=== PATIENT | female | born 1950 | race Caucasian/White ===

== ENCOUNTER → 2021-07-04 09:28 | Outpatient (BNVA) | payer MEDICARE, SELFPAY | PROVIDERS: PCP Internal Medicine; Visit Provider Urology | DX: N39.0 Urinary tract infection, site not specified (principal); N32.81 Overactive bladder | CPT/HCPCS: 51798; 99212 ==

== ENCOUNTER 2022-09-26 14:30 | Outpatient (AMB) | payer MEDICARE, SELFPAY ==
--- NOTE | 2022-09-26 14:34 | A.OFFVIS_ITS ---
Intake Intake Visit Reasons: 1 year follow up PVR and OAB Intake Note: 1 yr fu pvr and oab Allergies penicillin G Allergy (Unknown, Verified 09/26/22 14:35) Unknown Sulfacet-R Allergy (Unknown, Uncoded 09/26/22 14:35) Unknown HPI HPI Comments History of Present Illness Details Suzie VIEYRA is a very pleasant female. They are a patient of Dr. Alford. They are seen in the office today for the following urologic conditions. - recurring UTI - OAB Happy with current urinary performance Wants to increase oxybutynin to 10 mg Prescription provided Only 1 infection last year Urinary Tract Infection:? Stable on UA today Minimal issues with estradiol ? They present for?followup evaluation for, recurrent UTI's.? The first infection began?During 2019 approximately 6 infections - background of diabetes ? Severity of the symptom(s)?that is moderate.? Therapy has included?symptomatic use of antibiotics.? Relevant medical history? diabetes ?Yes ? constipation ?No ? incomplete bladder emptying ?No ? renal stones ?No ? genitourinary surgery ?No ? association of infections with intercourse ?No ? history of vesicoureteral reflux ?No ? Self-administered antibiotics Urinary urgency and frequency Good response to oxybutynin Will remain May need to changeover operator to beta agonist at future [facility] Medical History Diabetes mellitus HTN (hypertension) Hyperlipidemia OAB (overactive bladder) Recurrent UTI Vaginal atrophy Surgical History History of surgery Review of Systems Const Denies chills and Denies fever(s) Card Reports no additional complaints and Denies syncope Resp Denies cough GI Denies abdominal pain and Denies heartburn Reports as per HPI and Denies change in libido Neuro Denies syncope Psych Denies change in libido Endo Denies change in libido Physical Exam Const General: cooperative, healthy appearing, comfortable and no acute distress Orientation/consciousness: patient oriented x3 HEENT Face and sinus: Yes normal facial exam Mouth: moist mucous membranes Neck Neck: Yes normal visual inspection, Yes full ROM and Yes trachea midline Chest Chest palpation & inspection: normal inspection of the chest Resp Effort & Inspection: normal respiratory effort, able to speak in complete sentences and no respiratory distress GI Inspection: Yes normal to inspection Back/Spine/Pelvis Cervical Spine: normal cervical lordosis Thoracic/Lumbar Spine: thoracic and lumbar spine normal to inspection Skin General skin exam: no rashes or lesions noted Neuro General: patient oriented x3, gait normal, tone normal and moves all extremities Extrem General: Yes normal to inspection and Yes capillary refill normal Results AMB Urinalysis, Automated UA Leukoctes 15 David/uL Last Edit by RUSTY Magallanes on 09/26/22 15:26 UA Nitrite Negative Last Edit by Marcella Sanz Page on 09/26/22 15:26 UA Urobilinogen 0 mg/dL Last Edit by RUSTY Magallanes on 09/26/22 15:26 UA Protein 0 mg/dL Last Edit by Marcella Sanz Page on 09/26/22 15:26 UA pH 5.5 Last Edit by RUSTY Magallanes on 09/26/22 15:26 UA Blood 0 Jayden/uL Last Edit by Marcella Sanz Page on 09/26/22 15:26 UA Specific [place] 1.030 Last Edit by RUSTY Magallanes on 09/26/22 15: 26 UA Ketone Positive Last Edit by Marcella Sanz Page on 09/26/22 15:26 UA Bilirubin 0 mg/dL Last Edit by Marcella Sanz Page on 09/26/22 15:26 UA Glucose 0 mg/dL Last Edit by Marcella Sanz Page on 09/26/22 15:26 Results Reviewed Results Reviewed: Laboratory Last Values Urine pH (Auto) 5.5 09/26/22 15:25 Specific [place] (Auto) 1.030 09/26/22 15:25 Urine Protein (Auto) 0 mg/dL 09/26/22 15:25 Glucose (UA)(Auto) 0 mg/dL 09/26/22 15:25 Urine Ketones (Auto) Positive 09/26/22 15:25 Urine Blood (Auto) 0 Jayden/uL 09/26/22 15:25 Urine Nitrite (Auto) Negative 09/26/22 15:25 Urine Bilirubin (Auto) 0 mg/dL 09/26/22 15:25 Urine Urobilinogen (Auto) 0 mg/dL 09/26/22 15:25 Leukocyte Esterase (Auto) 15 David/uL 09/26/22 15:25 Assessment & Plan Assessment & Plan (1) Overactive bladder: Code(s): N32.81 - Overactive bladder (2) Recurrent UTI (urinary tract infection): Code(s): N39.0 - Urinary tract infection, site not specified Plan 12 month follow-up Orders: Orders AMB Urinalysis Automated 09/26/22 Z13.9 - Encounter for screening, unspecified Medications: New oxybutynin chloride ER 10 mg PO DAILY 90 tabs 3RF 90 days N32.81 - Overactive bladder Patient Instructions: Imaging studies, laboratory and physical exam results were discussed and reviewed in detail. No major barriers to patient understanding were identified. An opportunity to ask questions regarding the treatment plan was provided. All questions were answered. The patient expressed understanding and agreement with the above treatment plan. The patient is aware they should contact our office by phone for worsening of their current condition or the appearance of new urologic symptoms. Compliance is encouraged with any medications and followup testing that is ordered. It is a privilege to participate in the urologic care of your patient. If you have any questions or concerns regarding treatment for the above conditions, or other urologic issues, please do not hesitate to contact me. The office telephone contact is [phone]. This note is constructed using voice recognition software. While every effort has been made to ensure accuracy senior materials analyst errors may have been included. Yours sincerely, Dr Nahid Lamb MD, [facility] - Urology Providers of Expert, Compassionate Care for the Genitourinary System Coding Level of Care Code Est Pt Level 4 (59074) Diagnoses Overactive bladder N32.81 Recurrent UTI (urinary tract infection) N39.0
== END 2022-09-26 15:30 | disposition home or self-care (01) ==
LOC: HO.HUSH 14:30
PROVIDERS: PCP Internal Medicine; Visit Provider Urology
DX: N32.81 Overactive bladder (principal); N39.0 Urinary tract infection, site not specified
CPT/HCPCS: 99214; 99499

== ENCOUNTER → 2022-09-26 14:30 | Outpatient (BNVA) | payer MEDICARE, SELFPAY | PROVIDERS: PCP Internal Medicine; Visit Provider Urology | DX: N32.81 Overactive bladder (principal); N39.0 Urinary tract infection, site not specified | CPT/HCPCS: 99212 ==

== ENCOUNTER 2024-02-10 13:50 | Outpatient (REF) | payer MEDICARE, SELFPAY ==
[2024-02-10 19:12] LABS: Urine Cytology See Pathology rpt
== END 2024-02-10 13:51 | disposition home or self-care (01) ==
LOC: HO.LAB 13:50
PROVIDERS: PCP Internal Medicine; Visit Provider Urology
DX: R31.29 Other microscopic hematuria (principal); R33.9 Retention of urine, unspecified; N20.0 Calculus of kidney; R39.12 Poor urinary stream
CPT/HCPCS: 51798; 81003; 88112; 99212

== ENCOUNTER 2024-02-10 13:50 | Outpatient (AMB) | payer MEDICARE, SELFPAY ==
--- NOTE | 2024-02-10 13:53 | A.OFFVIS_ITS ---
Intake Visit Reasons: 1Y OAB/Med Reveiw(Oxybutynin) Intake Note: Patient presents today for a follow-up on Oxybutynin Med Review Meds- Oxybutinin, Estradiol Allergies to Antibiotic- Penicillin, Sulfacet- R Blood Thinner- Aspirin Post Void Residual: 0ml Patient Symptoms: Patient stated her primary care provider prescribed Oxybutynin 15mg and she is doing much better than before whe she was in lower dose. Patient stated she is using Estrace twice a week. Manager Technical Support Required: No Accompanied by: Self / Same As Patient Allergies penicillin G Allergy (Unknown, Verified 02/10/24 14:02) Unknown Sulfacet-R Allergy (Unknown, Uncoded 02/10/24 14:02) Unknown HPI Comments Details: Suzie VIEYRA is a very pleasant female. They are a patient of Dr. Alford. They are seen in the office today for the following urologic conditions. - recurring UTI - OAB - microscopic hematuria Yearly follow-up Microscopic hematuria Prior history recurrent UTI Renal bladder ultrasound required Cytology Doing well from UTI point of view. Using estradiol 2 times per week Urinary Tract Infection:? Stable on UA today Minimal issues with estradiol ? They present for?followup evaluation for, recurrent UTI's.? The first infection began?During 2019 approximately 6 infections - background of diabetes ? Severity of the symptom(s)?that is moderate.? Therapy has included?symptomatic use of antibiotics.? Relevant medical history? diabetes ?Yes ? constipation ?No ? incomplete bladder emptying ?No ? renal stones ?No ? genitourinary surgery ?No ? association of infections with intercourse ?No ? history of vesicoureteral reflux ?No ? Self-administered antibiotics Urinary urgency and frequency Good response to oxybutynin Will remain May need to private branch exchange repairer to beta agonist at future day [facility] Medical History Hyperlipidemia HTN (hypertension) Diabetes mellitus OAB (overactive bladder) Vaginal atrophy Recurrent UTI Surgical History History of surgery Review of Systems Const Denies chills and Denies fever(s) Card Reports no additional complaints and Denies syncope Resp Denies cough GI Denies abdominal pain and Denies heartburn Reports as per HPI and Denies change in libido Neuro Denies syncope Psych Denies change in libido Endo Denies change in libido Physical Exam Const General: cooperative, healthy appearing, comfortable and no acute distress Orientation/consciousness: patient oriented x3 HEENT Face and sinus: Yes normal facial exam Mouth: moist mucous membranes Neck Neck: Yes normal visual inspection, Yes full ROM and Yes trachea midline Chest Chest palpation & inspection: normal inspection of the chest Resp Effort & Inspection: normal respiratory effort, able to speak in complete sentences and no respiratory distress GI Inspection: Yes normal to inspection Back/Spine/Pelvis Cervical Spine: normal cervical lordosis Thoracic/Lumbar Spine: thoracic and lumbar spine normal to inspection Skin General skin exam: no rashes or lesions noted Neuro General: patient oriented x3, gait normal, tone normal and moves all extremities Extrem General: Yes normal to inspection and Yes capillary refill normal Office Procedures Post Void Residual Post Residual Void Post Void Residual (PVR): 0 [id number] Void Residual by ultrasound Results AMB Urinalysis, Automated UA Leukoctes 15 David/uL Last Edit by Iva Cortez CMA on 02/10/24 14:20 UA Nitrite Negative Last Edit by Iva Cortez CMA on 02/10/24 14: 20 UA Urobilinogen 0.2 mg/dL Last Edit by Iva Cortez CMA on 4 14:20 UA Protein 15 mg/dL Last Edit by Iva Cortez CMA on 02/10/24 14:2 0 UA pH 6.0 Last Edit by Iva Cortez CMA on 02/10/24 14:20 UA Blood 80 Jayden/uL Last Edit by [facility] on 02/10/24 14:20 UA Specific [place] 1.025 Last Edit by [facility] on 14:20 UA Ketone Negative Last Edit by [facility] on 02/10/24 14:2 0 UA Bilirubin 0 mg/dL Last Edit by [facility] on 02/10/24 14: 20 UA Glucose 0 mg/dL Last Edit by [facility] on 02/10/24 14:20 Results Reviewed Results Reviewed: Laboratory Last Values Urine pH (Auto) 6.0 02/10/24 13:56 Specific [place] (Auto) 1.025 02/10/24 13:56 Urine Protein (Auto) 15 mg/dL 02/10/24 13:56 Glucose (UA)(Auto) 0 mg/dL 02/10/24 13:56 Urine Ketones (Auto) Negative 02/10/24 13:56 Urine Blood (Auto) 80 Jayden/uL 02/10/24 13:56 Urine Nitrite (Auto) Negative 02/10/24 13:56 Urine Bilirubin (Auto) 0 mg/dL 02/10/24 13:56 Urine Urobilinogen (Auto) 0.2 mg/dL 02/10/24 13:56 Leukocyte Esterase (Auto) 15 David/uL 02/10/24 13:56 Assessment & Plan Assessment & Plan (1) Microscopic hematuria: Code(s): R31.29 - Other microscopic hematuria Category: Medical Plan Renal bladder ultrasound Orders: Orders AMB Post Void Residual by ultrasound 02/10/24 R33.9 - Retention of urine, unspecified US bladder 02/10/24 R39.12 - Poor urinary stream, R31.29 - Other microscopic hematuria US renal BI 1 Month N20.0 - Calculus of kidney, R31.29 - Other microscopic hematuria AMB Urinalysis Automated 02/10/24 R33.9 - Retention of urine, unspecified Urine Cytology 02/10/24 R31.29 - Other microscopic hematuria Patient Instructions: Imaging studies, laboratory and physical exam results were discussed and reviewed in detail. No major barriers to patient understanding were identified. An opportunity to ask questions regarding the treatment plan was provided. All questions were answered. The patient expressed understanding and agreement with the above treatment plan. The patient is aware they should contact our office by phone for worsening of their current condition or the appearance of new urologic symptoms. Compliance is encouraged with any medications and followup testing that is ordered. It is a privilege to participate in the urologic care of your patient. If you have any questions or concerns regarding treatment for the above conditions, or other urologic issues, please do not hesitate to contact me. The office telephone contact is [phone]. This note is constructed using voice recognition software. While every effort has been made to ensure accuracy harness and bag inspector errors may have been included. Yours sincerely, Dr Nahid Lamb MD, [facility] - Urology Providers of Expert, Compassionate Care for the Genitourinary System
== END 2024-02-10 14:48 | disposition home or self-care (01) ==
PROVIDERS: PCP Internal Medicine; Visit Provider Urology
DX: R31.29 Other microscopic hematuria (principal)
CPT/HCPCS: 99213

== ENCOUNTER 2024-03-14 13:52 | Outpatient (REF) | payer OTHER, SELFPAY ==
--- NOTE | ~2024-03-14 | US_ITS ---
EXAMINATION: US RETROPERITONEAL COMPLETE (RENAL) CLINICAL INFORMATION: Calculus of kidney. COMPARISON: None available. TECHNIQUE: Real-time imaging of the kidneys and bladder. FINDINGS: RIGHT KIDNEY: 10.4 x 4.0 x 5.2 cm (SAG x AP x TRV). The kidney is normal in size, contour, and echogenicity. Renal cortical thickness is normal. No calculi or focal parenchymal lesions. No hydronephrosis. LEFT KIDNEY: 9.8 x 4.3 x 3.9 cm (SAG x AP x TRV). The kidney is normal in size, contour, and echogenicity. Renal cortical thickness is normal. No calculi or focal parenchymal lesions. No hydronephrosis. BLADDER: Well distended and normal. Bilateral ureteral jets are demonstrated. Prevoid bladder volume is 107.1 mL. Postvoid bladder volume is 3.3 mL. US/US retroperitoneal comp IMPRESSION: Normal renal and bladder ultrasound.
== END 2024-03-14 13:53 | disposition home or self-care (01) ==
LOC: HO.US 13:52
PROVIDERS: PCP Internal Medicine; Visit Provider Urology
DX: N20.0 Calculus of kidney (principal); R39.12 Poor urinary stream; R31.29 Other microscopic hematuria
CPT/HCPCS: 76770

== ENCOUNTER 2024-03-25 14:18 | Outpatient (AMB) | payer OTHER, SELFPAY ==
--- NOTE | 2024-03-25 14:19 | A.OFFVIS_ITS ---
Intake Visit Reasons: 6w/US(set) Intake Note: Patient is Present for Telephone Follow Up For Urology Med: Estradiol,Oxybutynin Antibiotic Allergy:Penicillin, Sulfa Blood Thinner:Aspirin Allergies penicillin G Allergy (Unknown, Verified 02/10/24 14:02) Unknown Sulfacet-R Allergy (Unknown, Uncoded 02/10/24 14:02) Unknown Medication List - Last Reconciled 03/25/24 by Nahid Lamb MD aspirin (Adult Low Dose Aspirin) 81 mg PO DAILY atorvastatin 80 mg PO BEDTIME carvedilol 6.25 mg PO DAILY cholecalciferol (vitamin D3) 10 mcg PO DAILY escitalopram oxalate 10 mg PO DAILY estradiol 0.01%(0.1mg/gram) (Estrace) 1 appful vaginal DAILY losartan 50 mg PO DAILY metformin 500 mg PO DAILY oxybutynin chloride ER 15 mg PO DAILY 90 days HPI Comments Details: Suzie VIEYRA is a very pleasant female. She is a patient of Dr. Alfrod. She is seen for the following urologic conditions. - recurring urinary tract infection - overactive bladder - microscopic hematuria Telemedicine Evaluation 15 min Consultation Doximity Jena Video Recent UA normal Renal bladder ultrasound performed which is normal Cytology normal Continues with low-dose estradiol 2 times a week Good response to 15 mg oxybutynin. Refill provided. Urinary Tract Infection:? Stable on UA today Minimal issues with estradiol ? They present for?followup evaluation for, recurrent UTI's.? The first infection began?During 2019 approximately 6 infections - background of diabetes ? Severity of the symptom(s)?that is moderate.? Therapy has included?symptomatic use of antibiotics.? Relevant medical history? diabetes ?Yes ? constipation ?No ? incomplete bladder emptying ?No ? renal stones ?No ? genitourinary surgery ?No ? association of infections with intercourse ?No ? history of vesicoureteral reflux ?No ? Self-administered antibiotics Urinary urgency and frequency Good response to oxybutynin Will remain May need to exchange mechanic to beta agonist at future day [facility] Medical History Hyperlipidemia HTN (hypertension) Diabetes mellitus OAB (overactive bladder) Vaginal atrophy Recurrent UTI Surgical History History of surgery Review of Systems Const All systems reviewed & are unremarkable except as noted in HPI and below Reports no additional complaints Resp Reports no additional complaints GI Reports no additional complaints Reports as per HPI Musc Reports no additional complaints Physical Exam Telemedicine evaluation Appropriate responses Regular breathing rate and rhythm HEENT Head: Yes normal to inspection Ears: hearing grossly normal bilaterally Eyes General: appearance normal, both eyes and all related structures Neck Neck: Yes normal visual inspection Chest Chest palpation & inspection: normal inspection of the chest Resp Effort & Inspection: normal respiratory effort and able to speak in complete sentences Telehealth Telehealth Telehealth Platform: [employer] Location of provider rendering services: practice address Location of patient: address on file Patient Identification confirmed using: Name, : Yes Telehealth method: video Patient verbally consented to treatment: Yes Patient verbally consented to billing insurance company: Yes Patient informed of any privacy concerns related to visit: Yes Assessment & Plan Assessment & Plan (1) Recurrent UTI (urinary tract infection): Code(s): N39.0 - Urinary tract infection, site not specified Category: Medical (2) Overactive bladder: Code(s): N32.81 - Overactive bladder Category: Medical Plan One year follow-up Medications: Discontinued oxybutynin chloride ER Discontinued Reason: Patient Refused 10 mg PO DAILY 90 days 90 tabs 3RF N32.81 - Overactive bladder Patient Instructions: Imaging studies, laboratory and physical exam results were discussed and reviewed in detail. No major barriers to patient understanding were identified. An opportunity to ask questions regarding the treatment plan was provided. All questions were answered. The patient expressed understanding and agreement with the above treatment plan. The patient is aware they should contact our office by phone for worsening of their current condition or the appearance of new urologic symptoms. Compliance is encouraged with any medications and followup testing that is ordered. It is a privilege to participate in the urologic care of your patient. If you have any questions or concerns regarding treatment for the above conditions, or other urologic issues, please do not hesitate to contact me. The office telephone contact is [phone]. This note is constructed using voice recognition software. While every effort has been made to ensure accuracy supervisor transferring and boxing errors may have been included. Yours sincerely, Dr Nahid Lamb MD, [facility] - Urology Providers of Expert, Compassionate Care for the Genitourinary System Coding Level of Care Code Tele Est Pt Level 3 (49830) Diagnoses Recurrent UTI (urinary tract infection) N39.0 Overactive bladder N32.81
== END 2024-03-25 15:02 | disposition home or self-care (01) ==
LOC: HO.HUSH 14:18
PROVIDERS: PCP Internal Medicine; Visit Provider Urology
DX: N39.0 Urinary tract infection, site not specified (principal); N32.81 Overactive bladder
CPT/HCPCS: 99213

== ENCOUNTER → 2024-03-25 14:18 | Outpatient (BNVA) | payer OTHER, SELFPAY | PROVIDERS: PCP Internal Medicine; Visit Provider Urology ==

== ENCOUNTER 2024-04-15 14:35 | Outpatient (REF) | payer SELFPAY ==
--- NOTE | 2024-04-19 10:41 | MHC.AU.HA1 ---
Hearing Aid Evaluation Date of Visit: 04/15/24 Historical Information: Description of Hearing: Right Ear: Within normal at .25 sloping to severe sensorineural hearing loss; Left Ear: Within normal through 2 kHz sloping to severe sensorineural hearing loss Summary: Alyssas hearing was evaluated at [facility] in January 2024. She was initially evaluated for pulsatile tinnitus in her right ear. She had an MRI and CT scan without any abnormal findings. However, after her hearing test, the mechanic field service recommended hearing aids. Although Suzie does not notice significant communication difficulties, she has found herself turning up the volume of the television or straining to hear speakers at a distance. Suzie currently lives alone. She is a teacher, working in small groups. She frequents restorationism as well as other social gatherings. Discussed possible third-alliance party hearing aid benefit through [employer] insurance. Advised that she would need to go to a contracted provider with her insurance for hearing aids to utilize any benefit. [facility] cannot bill her insurance for hearing aids and she would likely not get reimbursed. Suzie did not want to inquire any further with her insurance and opted to self-pay for hearing aids here. Discussed styles and technology levels. Suzie initially wanted custom hearing aid; however, ultimately opted for rechargeable RITE for open fitting. No interest in bluetooth. Hearing Aid Prescription: Based on the individual?s shared listening needs, communication environments, dexterity, desire for connectivity, and personal preferences, the following prescription for amplification has been made: Right ear: Make, Model, Color: Oticon Intent 2 miniRITE-R Color: Silver Battery Size: Rechargeable Preprint Analyst/Slim Tube: 2/85 Type of Earmold/Dome/CShell/SlimTip: 8mm open vides dome Left ear: Left ear prescription to be same as Right Hearing Aid above: Make, Model, Color: Oticon Intent 2 miniRITE-R Color: Silver Battery Size: Rechargeable Preprint Analyst/Slim Tube: 2/85 Type of Earmold/Dome/CShell/SlimTip: 8mm open vides dome Accessories/Assistive Technology: Supervisor Facepiece Line; ConnectClip Plan of Care: Patient wishes to purchase hearing aids as prescribed Action Taken/Action Needed: Hearing Instrument Fitting to be scheduled when materials arrive Comments: Signed medical waiver Primary Diagnosis: H90.3 Bilateral Sensorineural Hearing Loss Signature: Provider: Rima Holly, [facility]
== END 2024-04-15 14:36 | disposition home or self-care (01) ==
LOC: HO.HAP 14:35
PROVIDERS: PCP Internal Medicine; Visit Provider Internal Medicine
DX: Z46.1 Encounter for fitting and adjustment of hearing aid (principal); H90.3 Sensorineural hearing loss, bilateral
CPT/HCPCS: 92590

== ENCOUNTER 2024-05-02 13:42 | Outpatient (REF) | payer SELFPAY ==
--- NOTE | 2024-05-02 15:42 | MHC.AU.HA2 ---
Hearing Instrument Fitting- Adult- Binaural Date of Visit: 05/02/24 Hearing Instruments Dispensed: Right Ear: Make, Model, Color, Serial Number: Oticon Intent 2 miniRITE-R SN: [id number] Color: Silver Refrigeration System Installer Repair Warranty: 05/19/2027 Refrigeration System Installer Loss and Damage Warranty: 05/19/2027 [employer] Service Plan: OPTED OUT Battery Size: Rechargeable Camp Program Director/Slim Tube: 2/85 Earmold/Dome/CShell/SlimTip: 8mm open vides dome (no retention tail) Type of Wax Guard: miniFit Left Ear: Make, Model, Color, Serial Number: Oticon Intent 2 miniRITE-R SN: [id number] Color: Silver Refrigeration System Installer Repair Warranty: 05/19/2027 Refrigeration System Installer Loss and Damage Warranty: 05/19/2027 [employer] Service Plan: OPTED OUT Battery Size: Rechargeable Camp Program Director/Slim Tube: 2/85 Earmold/Dome/CShell/SlimTip: 8mm open vides dome (no retention tail) Type of Wax Guard: miniFit Accessories/Assistive Technology: Oticon Retail Loan Originator miniRITE SN: [id number] Warranty: 05/19/2027 Connectclip SN: [id number] Warranty: 05/19/2025 Summary of Fitting: Ran real ear measures at soft level with good match to target. Could not complete at medium levels and MPOs due to technical difficulties with real ear equipment. Comfortable sound quality at real ear settings. Discussed care, use, and rechargeability including manually turning on/off and changing domes and wax guards. Practiced insertion and removal. Suzie was motivated to wear and use hearing aids. Explained acclimatization period and importance of consistent use. Dispensed ConnectClip; however, did not instruct on use. Advised to bring to follow up to discuss at that time. Also did not discuss bluetooth yet - will do at follow up. Recommendations: A hearing instrument follow-up was scheduled. Diagnosis Code(s): Primary Diagnosis: H90.3 Bilateral Sensorineural Hearing Loss Signature: Provider: Rima Holly, [facility]
== END 2024-05-02 13:43 | disposition home or self-care (01) ==
LOC: HO.HAP 13:42
PROVIDERS: Visit Provider Internal Medicine
DX: Z46.1 Encounter for fitting and adjustment of hearing aid (principal); H90.3 Sensorineural hearing loss, bilateral
CPT/HCPCS: 92700; V5261; V5299

== ENCOUNTER 2024-05-18 09:55 | Outpatient (REF) | payer SELFPAY | END 2024-05-18 09:56 | disposition home or self-care (01) | LOC: HO.HAP 09:55 | PROVIDERS: Visit Provider Internal Medicine | DX: Z13.89 Encounter for screening for other disorder (principal) ==

== ENCOUNTER 2024-07-22 14:45 | Outpatient (REF) | payer OTHER, SELFPAY ==
--- NOTE | ~2024-07-22 | MM_ITS ---
EXAMINATION: MM SCREENING DIGITAL BREAST TOMOSYNTHESIS, BILATERAL CLINICAL INFORMATION: Screening. Asymptomatic. COMPARISON: Mammography: Prior images are available. Patient's prior reports pathology report from previous right stereotactic needle core biopsy are not available at this time. TECHNIQUE: Digital breast mammography with tomosynthesis is performed in both the craniocaudal and mediolateral oblique views along with computer-aided detection (CAD). FINDINGS: There are scattered areas of fibroglandular density (ACR BI-RADS breast composition Category b). Right: Focal asymmetry upper outer breast anterior depth with associated calcifications. No suspicious other abnormal findings. Marker clip in the retroareolar region posterior depth from previous needle core biopsy at outside institution. Left: There are no significant masses, abnormal calcifications, or other abnormalities. MM/MM tomosynthesis screening BI IMPRESSION: Left: No mammographic evidence of malignancy. Right: Focal asymmetry upper-outer breast anterior depth with associated calcifications. Additional imaging including magnification views are recommended at this time and ultrasound. ASSESSMENT: BI-RADS BI-RADS 0 - Incomplete: Needs additional Imaging. RECOMMENDATION: 1. Additional views of the right breast 2. Targeted ultrasound if warranted after review of the additional views. 3. Radiology department staff will contact the patient for additional imaging. Additional Imaging required This examination should not preclude the clinical evaluation of a suspicious palpable abnormality. This patient's information was entered into a reminder system with a target due date for their next mammogram. Electronically signed by: Devorah Yeh DO 08/19/2024 09:10 AM EDJl
== END 2024-07-22 14:46 | disposition home or self-care (01) ==
LOC: HO.MAMMO 14:45
PROVIDERS: PCP Internal Medicine; Visit Provider Internal Medicine
DX: Z12.31 Encounter for screening mammogram for malignant neoplasm of breast (principal)
CPT/HCPCS: 77063; 77067

== ENCOUNTER → 2024-07-22 15:00 | Outpatient (BNV) | payer OTHER, SELFPAY | PROVIDERS: PCP Internal Medicine; Visit Provider Internal Medicine | DX: Z12.31 Encounter for screening mammogram for malignant neoplasm of breast (principal) | CPT/HCPCS: 77063; 77067 ==

== ENCOUNTER 2024-08-24 09:06 | Outpatient (REF) | payer OTHER, SELFPAY ==
--- NOTE | ~2024-08-24 | MM_ITS ---
EXAMINATION: MM DIAGNOSTIC DIGITAL BREAST TOMOSYNTHESIS, RIGHT CLINICAL INFORMATION: Diagnostic exam to evaluate focal asymmetry with associated calcifications upper outer quadrant right breast anterior depth. History of benign right breast stereotactic biopsy 07/10/2022. COMPARISON: Mammography: 07/22/2024 ([facility] [place] 07/08/2023, 07/01/2022, 06/28/2022, 06/19/2021 ([facility]) TECHNIQUE: Digital right breast tomosynthesis is performed in the following views: 3-D spot compression right CC and MLO views, as well as 2-D spot magnification right CC and right ML x2 views. FINDINGS: There are scattered areas of fibroglandular density (ACR BI-RADS breast composition Category b). There are grouped calcifications in the upper outer right breast which have a minimally pleomorphic morphology, at least one coarse form, however no linear or branching forms or ductal distribution. There is an associated 5 mm underlying lobular mass, most likely a degenerating fibroadenoma. These findings are probably benign, and six-month follow-up recommended. There is an oil cyst in the far outer upper right breast anterior depth. There is a post benign biopsy clip within a small mass in the approximate 6:00 axis, posterior depth. No suspicious findings are evident. MM/MM tomosynthesis added views R IMPRESSION: There are no findings suspicious for malignancy right breast. There are probably benign grouped calcifications upper outer right breast anterior depth associated with a small 5 mm lobular mass, most likely a degenerating fibroadenoma. These calcifications are likely dystrophic. Six-month interval follow-up recommended to ensure stability to exclude standard magnification views. ASSESSMENT: BI-RADS BI-RADS 3 - Probably benign finding(s) - 6 month follow-up suggested RECOMMENDATION: 6 Month F/U Results were provided to the patient at time of visit by the technologist. This patient's information was entered into a reminder system with a target due date for their next mammogram. Electronically signed by: Lucian Daniels MD 08/24/2024 10:05 AM EDT
== END 2024-08-24 09:07 | disposition home or self-care (01) ==
LOC: HO.MAMMO 09:06
PROVIDERS: PCP Internal Medicine; Visit Provider Internal Medicine
DX: R92.8 Other abnormal and inconclusive findings on diagnostic imaging of breast (principal)
CPT/HCPCS: 77061; 77065

== ENCOUNTER → 2024-08-24 09:30 | Outpatient (BNV) | payer OTHER, SELFPAY | PROVIDERS: PCP Internal Medicine; Visit Provider Radiology Diagnostic Radiology | DX: R92.1 Mammographic calcification found on diagnostic imaging of breast (principal) | CPT/HCPCS: 77065; G0279 ==

== ENCOUNTER 2025-03-01 14:15 | Outpatient (REF) | payer OTHER, SELFPAY ==
--- NOTE | ~2025-03-01 | MM_ITS ---
EXAMINATION: MM DIAGNOSTIC DIGITAL MAMMOGRAPHY, RIGHT CLINICAL INFORMATION: Follow-up for right breast calcifications. COMPARISON: Mammography: Priors on PACS. TECHNIQUE: Digital mammography is performed in craniocaudal and mediolateral oblique views along with computer-aided detection (CAD). FINDINGS: There are scattered areas of fibroglandular density (ACR BI-RADS breast composition Category b). Grouped coarse heterogeneous calcifications in the upper outer quadrant slightly coarsened from priors but overall not significantly changed on magnification views. The associated focal asymmetry is unchanged from priors dating back to 2021. No suspicious masses or other abnormal findings. Results are provided to the patient at time of visit by the technologist. MM/MM diagnostic mammo unilat RT IMPRESSION: Grouped coarse heterogeneous calcifications with associated focal asymmetry which is stable back to 2021 are not significantly changed from prior magnification views dating back to August 2024. Recommend six-month follow-up with magnification views for further evaluation of stability. ASSESSMENT: BI-RADS BI-RADS 3 - Probably benign finding(s) - 6 month follow-up suggested RECOMMENDATION: 6 Month F/U This patient's information was entered into a reminder system with a target due date for their next mammogram. Electronically signed by: Devorah Yeh DO 03/01/2025 02:52 PM EDT
== END 2025-03-01 14:16 | disposition home or self-care (01) ==
LOC: HO.MAMMO 14:15
PROVIDERS: PCP Internal Medicine; Visit Provider Internal Medicine
DX: R92.8 Other abnormal and inconclusive findings on diagnostic imaging of breast (principal)
CPT/HCPCS: 77062; 77065

== ENCOUNTER → 2025-03-01 14:30 | Outpatient (BNV) | payer OTHER, SELFPAY | PROVIDERS: PCP Internal Medicine; Visit Provider Internal Medicine | DX: R92.1 Mammographic calcification found on diagnostic imaging of breast (principal) | CPT/HCPCS: 77065 ==

== ENCOUNTER 2025-04-06 14:16 | Outpatient (AMB) | payer OTHER, SELFPAY ==
--- NOTE | 2025-04-06 14:21 | A.OFFVIS_ITS ---
Intake Visit Reasons: 1yr follow up Intake Note: Pt presents to the office today for a 1 year follow up. PVR:70ml Allergies penicillin G Allergy (Unknown, Verified 04/06/25 14:21) Unknown Sulfacet-R Allergy (Unknown, Uncoded 04/06/25 14:21) Unknown HPI Comments Details: Suzie VIEYRA is a very pleasant female. She is a patient of Dr. Alford. She is seen for the following urologic conditions. - recurring urinary tract infection - overactive bladder - microscopic hematuria Yearly follow-up Overactive bladder On 15 mg oxybutynin plus estradiol 2 times a week Symptoms stable At some point may need to change to beta agonist Urinary Tract Infection:? Stable on UA today Minimal issues with estradiol ? They present for?followup evaluation for, recurrent UTI's.? The first infection began?During 2019 approximately 6 infections - background of diabetes ? Severity of the symptom(s)?that is moderate.? Therapy has included?symptomatic use of antibiotics.? Relevant medical history? diabetes ?Yes ? constipation ?No ? incomplete bladder emptying ?No ? renal stones ?No ? genitourinary surgery ?No ? association of infections with intercourse ?No ? history of vesicoureteral reflux ?No ? Self-administered antibiotics Urinary urgency and frequency Good response to oxybutynin Will remain May need to filter changer to beta agonist at future day [facility] Medical History Hyperlipidemia HTN (hypertension) Diabetes mellitus OAB (overactive bladder) Vaginal atrophy Recurrent UTI Surgical History History of surgery Review of Systems Const Denies chills and Denies fever(s) Card Reports no additional complaints and Denies syncope Resp Denies cough GI Denies abdominal pain and Denies heartburn Reports as per HPI and Denies change in libido Neuro Denies syncope Psych Denies change in libido Endo Denies change in libido Physical Exam Const General: cooperative, healthy appearing, comfortable and no acute distress Orientation/consciousness: patient oriented x3 HEENT Face and sinus: Yes normal facial exam Mouth: moist mucous membranes Neck Neck: Yes normal visual inspection, Yes full ROM and Yes trachea midline Chest Chest palpation & inspection: normal inspection of the chest Resp Effort & Inspection: normal respiratory effort, able to speak in complete sentences and no respiratory distress GI Inspection: Yes normal to inspection Back/Spine/Pelvis Cervical Spine: normal cervical lordosis Thoracic/Lumbar Spine: thoracic and lumbar spine normal to inspection Skin General skin exam: no rashes or lesions noted Neuro General: patient oriented x3, gait normal, tone normal and moves all extremities Extrem General: Yes normal to inspection and Yes capillary refill normal Office Procedures Post Void Residual Post Residual Void Post Void Residual (PVR): 70 15262-Gqmm Void Residual by ultrasound Assessment & Plan Assessment & Plan (1) Overactive bladder: Code(s): N32.81 - Overactive bladder Category: Medical (2) Recurrent UTI (urinary tract infection): Code(s): N39.0 - Urinary tract infection, site not specified Category: Medical Plan Twelve month follow-up Orders: Orders AMB Post Void Residual by ultrasound 04/06/25 N32.81 - Overactive bladder AMB Urinalysis Automated 04/06/25 R31.29 - Other microscopic hematuria Medications: Changed From estradiol 0.01%(0.1mg/gram) for 14 days 1 appful vaginal DAILY To estradiol 0.01%(0.1mg/gram) (Estrace) 0.5 grams vaginal 2XW 42.5 grams 0RF 90 days Refilled oxybutynin chloride ER 15 mg PO DAILY 90 tabs 3RF 90 days N39.0 - Urinary tract infection, site not specified Patient Instructions: This note is constructed using voice recognition software. While every effort has been made to ensure accuracy records tech errors may have been included. Imaging studies, laboratory and physical exam results were discussed and reviewed in detail. No major barriers to patient understanding were identified. An opportunity to ask questions regarding the treatment plan was provided. All questions were answered. The patient expressed understanding and agreement with the above treatment plan. The patient is aware they should contact our office by phone for worsening of their current condition or the appearance of new urologic symptoms. Compliance is encouraged with any medications and followup testing that is ordered. It is a privilege to participate in the urologic care of your patient. If you have any questions or concerns regarding treatment for the above conditions, or other urologic issues, please do not hesitate to contact me. The office telephone contact is [phone]. Sincerely, Dr Nahid Lamb MD, [facility] - Urology Compassionate Specialist Care for the Genitourinary System Coding Level of Care Code Est Pt Level 4 (44541) Complex EM visit Add On G2211 Diagnoses Overactive bladder N32.81 Recurrent UTI (urinary tract infection) N39.0 CPT Codes Post Residual Void - PVR CPT Code: 92115-Gxkb Void Residual by ultrasound ([id number])
--- OUTSIDE RECORDS SUMMARY | 2025-04-06 14:57 | XMS_ITS | Clinical Summary ---
Author Organization [facility] Address [address] [place] [address] Care Team Providers Care Hot Header Operator Name Role Phone Tommie Alford MD Primary Care Provider Allergies Active Allergy Reactions Criticality Noted Date Comments Penicillins Hives Low 09/14/2019 Sulfa Antibiotics Itching,Rash Low 09/14/2019 Medications Medication Sig Dispensed Refills Start Date End Date Status aspirin EC 81 MG tablet Take 81 mg by mouth daily. 0 Active losartan (COZAAR) tablet 25 mg Take 25 mg by mouth daily. 0 Active metoprolol tartrate (LOPRESSOR) 25 MG tablet Take 25 mg by mouth daily. 0 Active metFORMIN (GLUCOPHAGE) tablet 500 mg Take 500 mg by mouth 2 (two) times a day with meals. 0 Active escitalopram (LEXAPRO) tablet 10 mg Take 10 mg by mouth daily. 0 Active atorvastatin (LIPITOR) tablet 10 mg Take 10 mg by mouth every evening. 0 Active raNITIdine (ZANTAC) 150 MG tablet Take 150 mg by mouth 2 (two) times a day. 0 Active oxybutynin (DITROPAN-XL) 10 MG 24 hr tablet Take 10 mg by mouth daily. 0 Active Ferrous Sulfate (IRON) 325 (65 Fe) MG TABS Take 1 tablet by mouth daily. 0 Active vitamin D3 (VITAMIN D3) 1000 units tablet Take 1,000 Units by mouth daily. 0 Active Multiple Vitamins-Minerals (PRESERVISION AREDS) TABS Take 1 tablet by mouth 2 (two) times a day. 0 Active acetaminophen (TYLENOL EXTRA STRENGTH) 500 MG tablet Take 500 mg by mouth every 6 (six) hours as needed. 0 Active Active Problems Problem Noted Date Diagnosed Date Closed Colles' fracture of left radius 9 Family History Medical History Relation Name Comments Kidney disease Father Arthritis Mother Coronary artery disease Mother Heart disease Mother Relation Name Status Comments Father Mother Social History Tobacco Use Types Packs/Day Years Used Date Smoking Tobacco: Never Smokeless Tobacco: Never Alcohol Use Standard Drinks/Week Comments No 0 (1 standard drink = 0.6 oz pur e alcohol) Sex and Gender Information Value Date Recorded Sex Assigned at Female 09/14/2019 8:31 AM EDT Gender Identity Not on file Sexual Orientation Not on file Last Filed Vital Signs Vital Sign Reading Time Taken Comments Blood Pressure 134/73 09/19/2019 1:44 PM EDT Pulse 70 09/19/2019 1:44 PM EDT Temperature 36.5 ??C (97.7 ??F) 10/31/2019 2:42 PM ES T Respiratory Rate 16 09/19/2019 1:44 PM EDT Oxygen Saturation 97% 09/19/2019 1:44 PM EDT Inhaled Oxygen Concentration - - Weight 91.2 kg (201 lb) 10/31/2019 2:42 PM EST Height 154.9 cm (5' 1 ) 10/31/2019 2:42 PM EST Body Mass Index 37.98 10/31/2019 2:42 PM EST Plan of Treatment Health Maintenance Due Date Last Done Comments Hepatitis C Screening 1950 COVID-19 Vaccine (#1) 06/02/1951 Depression Screening 1962 Preventative Health Evaluation 1968 DTap / Tdap / Td (1 - Tdap) 1969 Colon Cancer Screening (Colonoscopy) 1995 Breast Cancer Screening (Mammogram) 2000 Shingrix-Zoster Vaccine (1 of 2) 2000 Fall Risk Assessment 2015 Osteoporosis Screening (DEXA Scan) 2015 Pneumococcal Vaccine (1 of 1 - PCV) 2015 BMI Counseling 09/15/2020 09/15/2019 Influenza Vaccine (#1) 2024 RSV Adult > 60+ Yrs or Pregn ant (1 - 1-dose 75+ series) 2025 Hepatitis B Vaccines Aged Out No long er eligible based on patient's age to complete this topic RSV Ped < 20 months Aged Out No longe r eligible based on patient's age to complete this topic Care Teams Hot Header Operator Relationship Specialty Start Date End Date [facility] Alford MD [address] [facility] [address] [place] [address] PCP - General Internal Medicine 09/14/19
--- OUTSIDE RECORDS SUMMARY | 2025-04-06 14:57 | XMS_ITS | Clinical Summary ---
Author Organization [facility] Address [address] [place] [address] Care Team Providers Care Nitric Acid Plant Operator Name Role Phone Tommie Alford MD Primary Care Provider [phone] Social History Tobacco Use Types Packs/Day Years Used Date Smoking Tobacco: Never Smokeless Tobacco: Never Alcohol Use Standard Drinks/Week Comments Never 0 (1 standard drink = 0.6 oz pur e alcohol) Comments Unknown Sex and Gender Information Value Date Recorded Sex Assigned at Not on file Legal Sex Female 10:10 PM EST Gender Identity Not on file Sexual Orientation Not on file Obstetrics History Last Filed Vital Signs Vital Sign Reading Time Taken Comments Blood Pressure 144/83 01/27/2023 10:12 AM EST Si tting L Arm Pulse 74 01/27/2023 10:12 AM EST Temperature - - Respiratory Rate - - Oxygen Saturation - - Inhaled Oxygen Concentration - - Weight 87.1 kg (192 lb) 01/27/2023 10:12 AM EST Height 154.9 cm (5' 1 ) 01/27/2023 10:12 AM EST Body Mass Index 36.28 01/27/2023 10:12 AM EST Plan of Treatment Health Maintenance Due Date Last Done Comments DTaP,Tdap,and Td Vaccines (1 - Tdap) 1969 Pneumococcal Vaccine: 50+ Years (1 of 1 - PCV) 2000 Zoster Vaccines (1 of 2) 2000 Cholesterol Screening (Lipid Panel) 10/25/2022 Colorectal Cancer Screening: Colonoscopy 10/25/2022 Depression Screening 10/25/2022 Falls Risk Assessment 10/25/2022 Hepatitis C Screening 10/25/2022 Social Influencers of Health Screening 10/25/2022 Hypertension/CHF/CAD Annual BMP Blood Test 12/22/2023 09/14/2019 COVID-19 Vaccine ( season) 2024 Breast Cancer Screening 07/08/2025 07/08/20, 06/29/2022, 06/19/2021, Additional history exists Influenza Vaccine (Season Ended) 2025 RSV Immunization Adult Patients (1 - 1-dose 75+ series) 2025 Osteoporosis Screening (Bone Density Screening) 07/08/2033 07/08/2023, 07/09/2018 HIB Vaccines Aged Out No longer eligi ble based on patient's age to complete this topic HPV Vaccines Aged Out No longer eligi ble based on patient's age to complete this topic Hepatitis A Vaccines Aged Out No long er eligible based on patient's age to complete this topic Hepatitis B Vaccines Aged Out No long er eligible based on patient's age to complete this topic IPV Vaccines Aged Out No longer eligi ble based on patient's age to complete this topic MMR Vaccines Aged Out No longer eligi ble based on patient's age to complete this topic Meningococcal ACWY Vaccine Aged Out N o longer eligible based on patient's age to complete this topic Meningococcal B Vaccine Aged Out No l onger eligible based on patient's age to complete this topic RSV Immunization Patients Under 20 months Aged Out No longer eligible based on patient's age to complete this topic Varicella Vaccines Aged Out No longer eligible based on patient's age to complete this topic Procedures Procedure Name Priority Date/Time Associated Diagnosis Comments [facility] DEXA AXIAL SKELETON Routine 07/08/2023 11:53 AM EDT Encounter for screening for osteoporosis [facility] SCREENING DIGITAL Routine 07/08/2023 11:49 AM EDT Encounter for screening mammogram for malignant neoplasm of breast from Last 3 Months or Most Recently Relevant to Health Maintenance Results * [facility] DEXA AXIAL SKELETON (07/08/2023 11:53 AM EDT) Anatomical Region Laterality Modality Mammography 07/08/2023 11:0 8 AM EDT Narrative 07/08/2023 11:53 AM EDT [facility] Diagnostic Imaging Department [address] [place] [address] Patient: ??KENTON VIEYRA ?/Age/Sex: 1950 - Unit#: ??[id number] ? Location/Status: ??SPDIMAM/REG CLI ? Mnemonic/Ordering Site: ??[facility]AMDEXAAX/SPMAM Ordering Physician: ??HANK NAPIER MD [facility] Dexa Axial Skeleton - 07/08/23 - 1150 Report Status:Signed HISTORY: ??The patient is a 72-year-old postmenopausal female with clinical concern for metabolic bone disease. FINDINGS: ??Dual energy x-ray absorptiometry of the lumbar spine and femurs is performed. The mean bone mineral density at L1-2 is 1.215 gm/cm2 which is 104% of that of young normals and 115% of that of age matched controls. This yields a T-score of 0.4 and a Z-score of 1.3 and there is therefore no evidence of osteoporosis or osteopenia here. The mean bone mineral density of the femurs bilaterally is 0.932 gm/cm2 which is 93% of that of young normals and 106% of that of age matched controls. ??This yields a T-score of -0.6 and a Z-score of 0.4 and there is therefore no evidence of osteoporosis or osteopenia here. ??However, the T-score of the left femoral neck is -1.4 which is diagnostic of osteopenia. IMPRESSION: 1. Osteopenia. ??There has been an increase of 14.9% in bone mineral density in the lumbar spine since the prior examination of 07/09/2018. ??There has been a decrease of 3.5% in bone mineral density in the right femur and a decrease of 6.6% in bone mineral density in the left femur. 2. FRAX analysis yields a 10-year probability of major osteoporotic fracture of 13.3% and a 10-year probability of hip fracture of 1.5%. Code 62089 Dictating Physician: ??EDI JACK MD Electronically Signed by: ??EDI JACK MD Dic Date/Time: ??07/08/23 115 Sign date/Time: ??07/08/23 115 Procedure Note Edi Jack MD - 12/29/2023 [facility] Diagnostic Imaging Department [address] [place], [place] [id number] Patient: JARRELLKENTON/Age/Sex: 1950 - 72- F Unit#: [id number] [facility] Ordering Physician: HANK NAPIER MD [facility] Dexa Axial Skeleton - 07/08/231149 Report Status:Signed HISTORY: The patient is a 72-year-old postmenopausal female withclinical concern for metabolic bone disease. FINDINGS: Dual energy x-ray absorptiometry of the lumbar spine and femursis performed. The mean bone mineral density at L1-2 is 1.215 gm/cm2 which is104% of that of young normals and 115% of that of age matched controls. Thisyields a T-score of 0.4 and a Z-score of 1.3 and there is therefore no evidenceof osteoporosis or osteopenia here. The mean bone mineral density of the femurs bilaterally is 0.932 gm/br1xpsye is 93% of that of young normals and 106% of that of age matched controls.This yields a T-score of -0.6 and a Z-score of 0.4 and there is therefore noevidence of osteoporosis or osteopenia here. However, the T-score of the leftfemoral neck is -1.4 which is diagnostic of osteopenia. IMPRESSION: 1. Osteopenia. There has been an increase of 14.9% in bone mineraldensity in the lumbar spine since the prior examination of 07/09/2018. There has guilherme decrease of 3.5% in bone mineral density in the right femur and a decreaseof 6.6% in bone mineral density in the left femur. 2. FRAX analysis yields a 10-year probability of major osteoporoticfracture of 13.3% and a 10-year probability of hip fracture of 1.5%. Code 11533 Dictating Physician: EDI JACK MD Electronically Signed by: EDI JACK MD Dic Date/Time: 07/08/23 1152 Sign date/Time: 07/08/23 1153 Hank Napier MD IMG BI PROCEDURES Final Result * [facility] SCREENING DIGITAL (07/08/2023 11:49 AM EDT) Anatomical Region Laterality Modality Mammography 07/08/2023 11:0 6 AM EDT Narrative 07/08/2023 11:49 AM EDT [facility] Diagnostic Imaging Department [address] [place] [address] Patient: ??KENTON VIEYRA ?/Age/Sex: 1950 - 72 - F Unit#: ??[id number] ? Location/Status: ??SPDIMAM/REG CLI ? Mnemonic/Ordering Site: ??DIGSC/SPMAM Ordering Physician: ??HANK NAPIER MD [facility] Screening Digital - 07/08/23 - 1124 Report Status:Signed EXAM: [facility] Screening Digital EXAM DATE AND TIME: 07/08/2023 11:25 AM HISTORY: ??Routine screening mammogram COMPARISON: ??07/10/2022, 07/01/2022, 06/28/2022 TECHNIQUE: Bilateral digital breast tomosynthesis was performed in the CC and MLO projections. Computer aided detection with Asset Mapping 3D 3.1 was employed. TISSUE DENSITY: b. There are scattered areas of fibroglandular density. FINDINGS: No suspicious masses, grouped microcalcifications, or areas of architectural distortion are seen. The skin and vascularity are unremarkable. ??A biopsy clip on the right is noted. ??Benign calcifications on the right as well as left noted. ??Stable nodular density on the right laterally identified. IMPRESSION: Stable mammographic appearance of the breasts. ??No evidence of malignancy is seen. A negative mammogram in the presence of a clinically suspicious palpable abnormality does not preclude the possibility of malignancy or alter the indications for biopsy. BI-RADS: ??Category 2: Benign RECOMMENDATION(S): 1: Routine screening mammogram BILATERAL in 1 year. Dictating Physician: ??JOEY HOFF MD Electronically Signed by: ??JOEY HOFF MD Dic Date/Time: ??07/08/23 1147 Sign date/Time: ??07/08/23 1149 Procedure Note Joey Hoff MD - 12/29/2023 [facility] Diagnostic Imaging Department [address] [place] [id number] Patient: JARRELLKENTON D.O.B./Age/Sex: 1950 - 72- F Unit#: [id number] Location/Status: [facility] CLI Mnemonic/Ordering Site: [facility] Ordering Physician: HANK NAPIER MD [facility] Screening Digital - 07/08/23 - 1124 Report Status:Signed EXAM: [facility] Screening Digital EXAM DATE AND TIME: 07/08/2023 11:25 AM HISTORY: Routine screening mammogram COMPARISON: 07/10/2022, 07/01/2022, 06/28/2022 TECHNIQUE: Bilateral digital breast tomosynthesis was performed in the CCand MLO projections. Computer aided detection with iCAD Search123 3D 3.1was employed. TISSUE DENSITY: b. There are scattered areas of fibroglandular density. FINDINGS: No suspicious masses, grouped microcalcifications, or areas ofarchitectural distortion are seen. The skin and vascularity are unremarkable. A biopsyclip on the right is noted. Benign calcifications on the right as well asleft noted. Stable nodular density on the right laterally identified. IMPRESSION: Stable mammographic appearance of the breasts. No evidence of malignancyis seen. A negative mammogram in the presence of a clinically suspicious palpable abnormality does not preclude the possibility of malignancy or alter the indications for biopsy. BI-RADS: Category 2: Benign RECOMMENDATION(S): 1: Routine screening mammogram BILATERAL in 1 year. Dictating Physician: JOEY HOFF MD Electronically Signed by: JOEY OHFF MD Dic Date/Time: 07/08/23 1147 Sign date/Time: 07/08/23 1149 Hank Napier MD IMG BI PROCEDURES Final Result from Last 3 Months or Most Recently Relevant to Health Maintenance Care Teams Nitric Acid Plant Operator Relationship Specialty Start Date End Date Tommie Alford MD PCP - General 07/11/09
--- OUTSIDE RECORDS SUMMARY | 2025-04-06 14:57 | XMS_ITS | Data Portability ---
Author Organization [place] - [facility], [facility] Address [address] [place] [address] Care Team Providers Care Raw Juice Weigher Name Role Phone MAMTA MINAYA Primary Care Provider [phone] Assessment No assessment recorded. Plan of Treatment Reminders Order Date Submit Date Provider Last Modified By Organization Details Last Modified Time Details Appointments None record ed. Lab None record ed. Referral None record ed. Procedures None record ed. Surgeries None record ed. Imaging XR, knee, 4 or more view - 117 b knee 4v 024 10/29/20 [place] [address] [facility], [address] [facility] [address], [address], [place], [address], 10:54:09 Medication Orders None record ed. Patient TargetsNo targets recorded. Patient InstructionsNo instructions recorded. Reason for Referral None Reported. Results Created Date Observation Date Name Description Value Unit Range Abnormal Flag Note LastModifiedBy Organization Detail LastModifiedTime 10/29/20 24 10/29/2024 XR, knee, 4 or more view [email or web address] ?Encry pted=s hAaTro YD8dLq bEUv6g %2BXZw aYqtaq 0bqfl% 2Fg9IQ a4ajBk vP9nXo QUaueC m3YtLR FvZlgJ JJ8mAn HZtai3 0h5184 AC0Kqa XSEVKS jKiQtr MwF INTERFACE [facility] [address], [place], [address], 10/29/2024 09:37:01 12/06/11 2410/29/2024 XR, knee, 4 or more view [email or web address] ?Encry pted=s Vale YD8dLq bEUv6g %2BXZw aYqtaq 0bqfl% 2Fg9IQ a4ajBk vP9nXo QUaueC m3YtLR FvZlgJ JJ8mAn HZtai3 0b7998 AC0Kqa XSEVKS jKiQtr MwF INTER[facility] [address], [place], [address], 10/29/2024 09:37:02 Result Notes None recorded. Problems Name Problem SNOMED Code Status Onset Date Resolution Date Notes Provider Name and Address Organization Details Recorded Time Pain of knee region 1477041116 Active 024 MADAY [facility] 09:27:38 Problem Notes None recorded. Procedures Surgical History Date Name Laterality Status Provider Name and Address Organization Details Recorded Time 10/29/2024 JZKNEE INJ completed Tanya Read PA-C [address], [place], [address], [facility] 10/29/2024 10:57:29 Imaging Results Imaging Date Name Status LastModified by Organiz ation Details LastModified Time 10/29/2024 XR, knee, 4 or more view completed [facility] [address], [place], [address], 10/29/2024 09:37:01 10/29/2024 XR, knee, 4 or more view completed [facility] [address], [place], [address], 10/29/2024 09:37:02 Procedure Notes None recorded. Medical Equipment None Reported. Allergies Allergen ID Allergen Name Allergen Category Reaction Reaction Severity Criticality Documentation Date Start Date Code Code System Note Provider Name and Address Organization Details Recorded Time 987746 Product containin g penicilli n (product) medicatio n Not available Not available Not available 10/29/2024 99624 8001 SNOMED MADAY [place], [place] - [facility] 4 09:25:29 956444 Substance with sulfonami de structure and antibacte rial mechanism of action (substanc e) medicatio n Not available Not available Not available 10/29/2024 98268 8003 SNOMED MADAY [place], [place] [facility] 4 09:25:35 Medications Name Sig Start Date Stop Date Status Note LastModified by Organization Details LastModified Time losartan 50 mg tablet TAKE 1 TABLET BY MOUTH EVERY DAY 10/29 completed Not Available Not Available Not Available atorvastati n 40 mg tablet TAKE 1 TABLET BY MOUTH EVERY DAY 10/29 completed Not Available Not Available Not Available metformin 500 mg tablet TAKE 1 TABLET BY MOUTH EVERY DAY active Not Available Not Available No t Available atorvastati n 80 mg tablet TAKE 1 TABLET BY MOUTH EVERY DAY AT BEDTIME FOR 90 DAYS active Not Available Not Available No t Available carvedilol 25 mg tablet TAKE 1 TABLET BY MOUTH TWICE A DAY WITH FOOD FOR 90 DAYS active Not Available Not Available No t Available oxybutynin chloride ER 15 mg tablet,exte nded release 24 hr TAKE 1 TABLET BY MOUTH EVERY DAY active Not Available Not Available No t Available pantoprazol e 40 mg tablet,zackery yed release TAKE 1 TABLET BY MOUTH EVERY DAY FOR 90 DAYS 10/29 completed Not Available Not Available Not Available omeprazole 20 mg capsule,del ayed release TAKE 1 CAPSULE BY MOUTH EVERY DAY 30 MINUTES BEFORE MORNING MEAL active Not Available Not Available No t Available methylpredn isolone 4 mg tablets in a dose pack TAKE 6 TABLETS ON DAY 1 DIRECTED ON PACKAGE AND DECREASE BY 1 TAB EACH DAY FOR A TOTAL OF 6 DAYS 10/29 completed Not Available Not Available Not Available ondansetron 4 mg disintegrat ing tablet TAKE 1 TABLET BY MOUTH EVERY 6 HOURS NEEDED FOR NAUSEA AND VOMITING 10/29 completed Not Available Not Available Not Available losartan 100 mg tablet TAKE 1 TABLET BY MOUTH EVERY DAY FOR 90 DAYS active Not Available Not Available No t Available escitalopra m 10 mg tablet TAKE 1 TABLET BY MOUTH EVERY DAY active Not Available Not Available No t Available Vitals Date Recorded Body height Body mass index (BMI) Body weight Provider Name and Address Organization Details Last Updated DateTime 10/29/2024 154.94 cm 35.3 kg/m2 37979.77 g M[place] - [facility] 10/29/2024 09:24:39 Social History None recorded. Functional Status None recorded. Mental Status None recorded. Family History Nothing Reported. Medical History No medical history recorded. Gynecological HistoryNo gynecological history recorded. Obstetrics History GPAL:G 0 P 0 0 0 0 Past Encounters Encounter ID Performer Location Encounter Start Date Encounter Closed Date Diagnosis/Indication Diagnosis SNOMED-CT Code Diagnosis ICD10 Code Diagnosis Note [id number] MYNOR Darling [address] [place] [address] 10/29/2024 08:45:50 11/17/2024 13:56:35 Pain of knee region 5990720990 M25.561 M25.562 G89.29 Osteoarthr itis of right knee joint 9303500334 08328 M17.11 Health Concerns Section Related Observation LastModified by Organization Detai ls LastModified Time None Recorded Concern Status LastModified by Organization Details LastModified Time None Recorded Advance Directives Directive None Recorded Payers Encounter Date Sequence Insurance Name Policy Number Policy Dumont Covered Member ID Dumont Member ID Guarantor Name 10/29/[address] [facility] - DOS ON OR AFTER 2023 - [employer] (MEDICARE REPLACEMENT/AD VANTAGE - HMO) Suzie Lamas [id number] Suzie Lamas Notes Date Note Type Note Provider Name and Address Organization Details Recorded Time 10/29/2024 text/html I am seeing the patient today under the supervision of {{Phan Costa#}}who was available but who did not see the patient. Chief Complaint The patient presents today for evaluation regarding the {{Left Right* Bilateral }} knee osteoarthritis. Reports that September 23 she noted the onset of right knee pain while at [employer], she had increasing pain with weightbearing and difficulty walking. She saw her PCP who put her on a steroid taper, which did not help. She used a cane for a couple of weeks. Symptoms have gradually improved, but are still present. She describes pain at the medial aspect of the knee that is worse with waalking. She denies any significant injury or trauma. She denies any catching, locking, instability. Past Medical/Surgical History Reviewed today, otherwise unchanged per intake sheet. Physical Findings General Appearance: Mild antalgic gait The patient is well appearing and in no apparent distress. Alert and oriented x3. Gait is symmetric. Knee exam findings note: restrictions are range of motion with pain at extremes, tenderness to palpation involving medial and lateral compartment with mild crepitance, trace effusion, extensor mechanism intact, no instability.Peripheral, vascular, lymphatic examination, skin, neurological, coordination, reflexes, sensation are within normal limits. Assessment ? Osteoarthritis of {{Left Right* Bilateral }} knee Plan I discussed with the patient today regarding their knee condition to include all treatment options, conservation and operative, to include total knee replacement surgery which after further discussion, the patient does not wish to pursue any type of operative intervention. In regards to the patient's knees today, I have recommended continued conservative treatment with use of tylenol, possible use of antiinflammatories as well as possibility of intraarticular cortisone injections for which they wish to go forth with. We also discussed due to the rather sudden onset of her pain there is a possibility of additional injury to the knee such as a meniscal root tear subchondral insufficiency fracture. If she does not respond well within 2 weeks to the cortisone injection I would recommend an MRI of the right knee for further evaluation. Questions answered. Otherwise, follow-up as needed. [facility] speech recognition air hammer stripper software was used to create portions of this document. An attempt at proofreading has been made to minimize errors. Please call for corrections. Tanya Read PA-C [address] [place] [address] [address], [place], [address], [facility] - [place] [facility] 10/29/2024 10:58:17 OBGyn Episode No OBEpisode recorded.
== END 2025-04-06 15:20 | disposition home or self-care (01) ==
LOC: HO.HUSH 14:17
PROVIDERS: PCP Internal Medicine; Visit Provider Urology
DX: N32.81 Overactive bladder (principal); N39.0 Urinary tract infection, site not specified
CPT/HCPCS: 99214; G2211

== ENCOUNTER → 2025-04-06 14:16 | Outpatient (BNVA) | payer OTHER, SELFPAY | PROVIDERS: PCP Internal Medicine; Visit Provider Urology | DX: N32.81 Overactive bladder (principal); N39.0 Urinary tract infection, site not specified | CPT/HCPCS: 51798; 99212 ==

== ENCOUNTER 2025-08-29 12:08 | Outpatient (REF) | payer OTHER, SELFPAY ==
--- OUTSIDE RECORDS SUMMARY | 2025-06-27 04:50 | XMS_ITS ---
Author Organization [facility] Address [address] [place], [place] [id number] Care Team Providers Care Bellhop Name Role Phone MAMTA MINAYA Primary Care Provider [phone] REASON FOR VISIT ov booked/urinary urgency, frequency Encounters Encounter Location Date Provider Diagnosis [facility] [address] [place] [address] 06/27/2025 AMMTA MINAYA PLAN OF TREATMENT Next Appt Details Provider Name:MAMTA EMERY, 12/21/2025 01:00:00 PM, [address] [place], [address],
--- OUTSIDE RECORDS SUMMARY | 2025-06-27 11:00 | XMS_ITS ---
Author Organization [facility] Address [address] [place], [place] [id number] Care Team Providers Care Plastic Top Assembler Name Role Phone MAMTA MINAYA Primary Care Provider PHILIP REID Unavailable [phone] ALLERGIES Allergen (clinical drug ingredient) Drug/Non Drug Allergy documented on EMR Reaction Allergy Type Onset Date Status Substance with sulfonamide structure and antibacterial mechanism of action (substance) SULPHA (uncoded) rash Allergy Active Penicillin rash Drug Allergy Active REASON FOR VISIT urinary urgency, frequency MEDICATIONS Medication SIG (Take, Route, Frequency, Duration) Notes Start Date End Date Status Sotalol HCl 80 MG 1 tablet Orally ever y 12 hrs for 90 days Active PreserVision AREDS 2 - 1 tablet Orally t wice a day Active Escitalopram Oxalate 10 MG 1 tablet Oral ly Once a day for 90 days Active Eliquis 5 MG 1 tablet Orally twic e a day Active Atorvastatin Calcium 80 MG 1 tablet oral ly Once a day Active Omeprazole 20 MG 1 capsule 1/2 to 1 h our before morning meal orally Once a day Active oxyBUTYnin Chloride ER 15 MG 1 tablet Orally Once a day for 30 day(s) 10/28/2023 Active Iron 325 (65 Fe) MG 1 tablet Orally Thre e times a Week for 30 day(s) Active metFORMIN HCl 500 MG 1 tablet with a christine l orally Once a day Active Estradiol 0.1 MG/GM 1 _insert Vaginal Tw o times a Week Active Vitamin D-3 25 MCG (1000 UT) 1 capsule Orally Once a day for 30 day(s) Active dilTIAZem HCl ER 180 MG 1 capsule Orally Once a day for 90 days Active SOCIAL HISTORY Tobacco Use: Social History Observation Description Date Details (start date - stop date) Never Smoker NA - NA Sex Assigned At : Social History Observation Description Sex Assigned At Unknown Smoking Question Answer Notes Are you a: never smoker Section Notes: pt never smoke VITAL SIGNS Height 59.125 in 06/27/2025 Weight 179.2 lbs 06/27/2025 Blood pressure systolic 132 mm Hg 06/27/20 25 Blood pressure diastolic 72 mm Hg 025 BMI 36.04 kg/m2 06/27/2025 Encounters Encounter Location Date Provider Diagnosis [facility] [address] [place] [phone] 06/27/2025 PHILIP REID Dysuria R30.0 ASSESSMENTS Encounter Date Diagnosis Assessment Notes Treatment Notes Treatment Clinical Notes Section Notes 06/27/2025 Dysuria (ICD-10 - R30.0) Labs ordered. Discussed possible toileting schedule and watching fluid intake right before bed. Continue with oxybutynin and estradiol. Follow-up with urology if continuing issues. If urine sent to lab has any positive findings we will treat based on findings. Follow-up with Dr. Minaya if continued or worsening symptoms. Otherwise follow-up as scheduled. PLAN OF TREATMENT Treatment Notes Assessment Notes Dysuria Labs ordered. Discus sed possible toileting schedule and watching fluid intake right before bed. Continue with oxybutynin and estradiol. Follow-up with urology if continuing issues. If urine sent to lab has any positive findings we will treat based on findings. Follow-up with Dr. Minaya if continued or worsening symptoms. Otherwise follow-up as scheduled. Next Appt Details Follow Up: Labs ordered. Fur ther treatment based on test results. Continue current medications. Follow-up with urology. Follow-up with Dr. Minaya as scheduled., Reason: Provider Name:MAMTA EMERY, 12/21/2025 01:00:00 PM, [address] [place] [address], [phone], Progress Notes * Examination Category Sub-Category Detail Notes Category Not es General Examination HEENT: NC/AT, EOMI,PERRL Neck: supple, no lymphaden opathy Heart: RRR, no murmurs, cli cks or rubs, normal S1S2 Lungs: clear to auscultatio n Abdomen: soft, non tender/non distended, no masses palpated, no hepatosplenomegaly, normal active bowel sounds Extremities: no edema General Appearance no apparent distress , pleasant Skin: normal, no rash Neuro alert and oriented x 3, gait normal Back: no CVA tenderness History and Physical Notes * HPI (History of Present Illness) Category Sub-Category Detail Notes Category Not es General Patient of Dr. Minaya seen today for evaluation of urinary urgency and frequency with some incontinence. States this morning she had issues with urinary frequency and urgency with incontinence from about 6 AM to 9 AM. Some discomfort in her lower back but not up in the area of her kidneys. No fevers or chills. No nausea or vomiting. She does have issues with overactive bladder and is currently on estradiol and oxybutynin from her urologist. Recently diagnosed with A-fib and started on Eliquis, diltiazem ER and sotalol. She denies any obvious blood in her urine. Denies any burning or pain. In April she had some lab work done which showed normal kidney function. She had an ultrasound of her abdomen done May 25 which showed normal kidneys as well as some fatty liver but no other findings. She notes she has been able to urinate during the day today. No difficulties with bowel movements. No nausea or vomiting. No diarrhea. No blood per rectum.
--- OUTSIDE RECORDS SUMMARY | 2025-06-29 03:57 | XMS_ITS ---
Author Organization [facility] Address [address] [place], [place] [id number] Care Team Providers Care Cattle Feeder Name Role Phone MAMTA MINAYA Primary Care Provider REASON FOR VISIT 2 (W)Urine test results Encounters Encounter Location Date Provider Diagnosis [facility] [address] [place] [address] 06/29/2025 MAMTA MINAYA PLAN OF TREATMENT Next Appt Details Provider Name:MAMTA EMERY, 12/21/2025 01:00:00 PM, [address] [place], [address],
--- OUTSIDE RECORDS SUMMARY | 2025-07-31 07:25 | XMS_ITS ---
Author Organization [facility] Address [address] [place], [place] [phone] Care Team Providers Care Regional Manager Name Role Phone MAMTA MINAYA Primary Care Provider REASON FOR VISIT MedRecReqTrs Encounters Encounter Location Date Provider Diagnosis [facility] [address] [place] [address] 07/31/2025 MAMTA MINAYA PLAN OF TREATMENT Next Appt Details Provider Name:MAMTA EMERY, 12/21/2025 01:00:00 PM, [address] [place], [phone],
--- OUTSIDE RECORDS SUMMARY | 2025-08-14 10:47 | XMS_ITS ---
Author Organization [facility] Address [address] [place], [place] [id number] Care Team Providers Care Perfume Compounder Name Role Phone MAMTA MINAYA Primary Care Provider [phone] REASON FOR VISIT B/L diagnostic mammogram order Encounters Encounter Location Date Provider Diagnosis [facility] [address] [place] [phone] 08/14/2025 MAMTA MINAYA PLAN OF TREATMENT Next Appt Details Provider Name:MAMTA EMERY, 12/21/2025 01:00:00 PM, [address] [place], [address],
--- NOTE | ~2025-08-29 | MM_ITS ---
EXAMINATION: MM DIAGNOSTIC DIGITAL BREAST TOMOSYNTHESIS, RIGHT CLINICAL INFORMATION: 6 month follow-up for calcifications in the upper outer right breast anterior depth. COMPARISON: Mammography: Comparison is made with relevant prior exams. TECHNIQUE: Digital breast mammography with tomosynthesis is performed in both the craniocaudal and mediolateral oblique views along with computer-aided detection (CAD). FINDINGS: There are scattered areas of fibroglandular density. Grouped coarse heterogeneous calcifications in the upper outer breast anterior depth are not significantly changed from prior medication views 6 months ago. No suspicious other abnormal findings. Results are provided to the patient at time of visit by the technologist. MM/MM tomosynthesis diagnostic BI IMPRESSION: Grouped coarse heterogeneous calcifications in the upper outer right breast anterior depth are not significantly changed from prior magnification views. Recommend 6 month follow-up for further evaluation of stability. ASSESSMENT: BI-RADS Category 3: Probably benign RECOMMENDATION: 6 Month F/U This patient's information was entered into a reminder system with a target due date for their next mammogram. Electronically signed by: Devorah Yeh DO 08/29/2025 03:02 PM EDT
--- OUTSIDE RECORDS SUMMARY | 2025-08-29 15:07 | XMS_ITS | Clinical Summary ---
Author Organization [facility] Address [address] [place] [address] Care Team Providers Care Curator Of Photography And Prints Name Role Phone Tommie Alford MD Primary Care Provider [phone] Allergies Active Allergy Reactions Criticality Noted Date [...] 70 09/19/2019 1:44 PM EDT Temperature 36.5 C (97.7 F) 10/31/2019 2:42 PM EST Respiratory Rate 16 09/19/2019 1:44 PM EDT [...] BMI Counseling 09/15/2020 09/15/2019 Influenza Vaccine (#1) 2025 RSV Adult > 60+ Yrs or Pregn ant (1 - 1-dose 75+ series) 2025 Hepatitis B Vaccines Aged Out No long er eligible based on patient's age to complete this topic RSV Ped < 20 months Aged Out No longe r eligible based on patient's age to complete this topic Care Teams Curator Of Photography And Prints Relationship Specialty Start Date End Date Tommie Alford MD [address] [facility] [address] [place] [address] PCP - General Internal Medicine 09/14/19
--- OUTSIDE RECORDS SUMMARY | 2025-08-29 15:08 | XMS_ITS | Patient Health Record ---
Author Organization [facility] Address [address] [place], [place] [phone] Care Team Providers Care Independent Jeweler Name Role Phone MAMTA MINAYA Primary Care Provider ASIF BATRES Unavailable [phone] PHILIP REID Unavailable [phone] ALLERGIES Allergen (clinical drug ingredient) Drug/Non Drug Allergy documented on EMR Reaction Allergy Type Onset Date Status Substance with sulfonamide structure and antibacterial mechanism of action (substance) SULPHA (uncoded) rash Allergy Active Penicillin rash Drug Allergy Active REASON FOR REFERRAL Reason (2)10/10/[address] w appt C onsult Dr. Malcolm Carrasco or one of his partners for possible knee injection severe arthritis and pain Diagnosis 1 Knee pain, unspecifi ed chronicity, unspecified laterality (M25.569) Referral [facility] Referring Provider First Name MAMTA Referring Provider Last Name REI Referring Provider Speciality Internal M edicine General Notes Peg NUNN Admin 12:30:55 PM > per office protocol medical referral, notes and xray of knee faxed to [phone]>no referral required with pt's insurance plans, Dr Malcolm Carrasco [phone], fax, phone, [facility] 10/11/2024 01:31:39 PM >Pt called, advised above, pt will call Dr. Carrasco's office for an appt. Referral Priority Urgent Reason Referral to [facility] for knee arthritis send copy of note and x-rays to them Diagnosis 1 Arthritis of knee (M 17.10) Referral Organization [facility] Renetta monet Referring Provider First Name MAMTA Referring Provider Last Name REI Referring Provider Speciality Internal edicine Referral Priority Routine Reason Referral Dr. Elva Torres [facility] GI for recurrent episodes of nausea and vomiting. Question upper endoscopy. Diagnosis 1 Recurrent vomiting ( R11.10) Referral Organization [facility] Renetta monet Referring Provider First Name MAMTA Referring Provider Last Name REI Referring Provider Speciality Internal edicine Referral Priority Routine MEDICATIONS Medication SIG (Take, Route, Frequency, Duration) Notes Start Date End Date Status Sotalol HCl 80 MG 1 tablet Orally ever y 12 hrs for 90 days Active PreserVision AREDS 2 - 1 tablet Orally t wice a day Active Escitalopram Oxalate 10 MG 1 tablet Oral ly Once a day for 90 days Active oxyBUTYnin Chloride ER 15 MG 1 [...] Once a day for 90 days Active Omeprazole 20 MG 1 capsule 1/2 to 1 h our before morning meal orally Once a day for 90 days Active Eliquis 5 MG 1 tablet Orally twic e a day Active Atorvastatin Calcium 80 MG 1 tablet oral ly Once a day Active IMMUNIZATIONS Vaccine Route Administration Date Status Comme nts Covid IM Intramuscular 08/16/2025 Administered [facility] Influenza, Flublok IM Intramuscular 08/16/2025 Administere d sanofi pasteur SOCIAL HISTORY Tobacco Use: Social History Observation Description Date Details (start date - stop date) Never Smoker NA - NA Sex Assigned At : Social History Observation Description Sex Assigned At Unknown Smoking Question Answer Notes Are you a: never smoker Section Notes: pt never smoke PROBLEMS Problem Type ICD Code Onset Dates Problem Status W/U Status Risk SNOMED Code Notes Problem Elevated sedimentation rate (790.1) Active confirmed Erythrocyte sedimentation rate raised (540750563) Problem osteoarthritis (715.90) Active confirmed Osteoarthritis (040008264) Problem Gastro-esophageal reflux disease without esophagitis (K21.9) Active confirmed Gastro-esophage al reflux disease without esophagitis (016579687) Problem Essential (primary) hypertension (I10) Active confirmed Essential hypertension (16266955) Problem Type 2 diabetes mellitus without complications (E11.9) Active confirmed Type II diabete s mellitus without complication (088786790) Problem Abnormal mammogram (R92.8) Active confirmed 593041260 Problem Overactive bladder (N32.81) Active confirmed Overactive bladder (570400534) Problem Atrophy of thyroid (acquired) (E03.4) Active confirmed Atrophy of thyroid - acquired (783754498) Problem Disorder of lipoprotein metabolism, unspecified (E78.9) Active confirmed Disorder of lipoprotein storage and metabolism (disorder) (138269733) Problem Atrial fibrillation, unspecified type (I48.91) Active confirmed 74261127 Problem Urinary incontinence, unspecified type (R32) Active confirmed 243448704 Problem Arthritis of knee (M17.10) Active confirmed 217129332 VITAL SIGNS Blood pressure diastolic 72 mm Hg 06/27/2025 Height 59.125 in 06/27/2025 Blood pressure systolic 132 mm Hg 06/27/2025 Weight 179.2 lbs 06/27/2025 BMI 36.04 kg/m2 06/27/2025 Encounters Encounter Location Date Provider Diagnosis [place] [phone] 09/27/2024 MAMTA MINAYA [place] [phone] 09/27/2024 MAMTA MINAYA Acute pain of right knee M25.561 ; Essential (primary) hypertension I10 and Type 2 diabetes mellitus without complications E11.[address] [address] 09/27/2024 MAMTA MINAYA [address] [address] 09/28/2024 MAMTA MINAYA [place] [id number]/10/2024 MAMTA MINAYA Knee pain, unspecified chronicity, unspecified laterality M25.[address] [address] 10/11/2024 MAMTA MINAYA Arthritis of knee M17.[address] [place] [address] 10/12/2024 MAMTA MINAYA [facility] [address] [place] [phone] 11/07/2024 ASIF BATRES [facility] [place] [facility] [address] [place] [address] 11/07/2024 MAMTA MINAYA [facility] [address] [place] [address] 11/14/2024 MAMTA MINAYA [facility] [address] [place] [address] 11/18/2024 ASIF BATRES Disorder of lipoprotein metabolism, unspecified E78.9 ; Essential (primary) hypertension I10 ; Type 2 diabetes mellitus without complications E11.9 ; Gastro-esophageal reflux disease without esophagitis K21.9 ; Overactive bladder N32.81 ; Atrophy of thyroid (acquired) E03.4 ; Arthritis of knee M17.10 and Recurrent vomiting R11.[address] [address] 11/21/[address] [address] 02/16/2025 MAMTA MINAYA Abnormal mammogram R92.[address] [address] 05/08/[address] [address] 05/17/2025 MAMTA MINAYA Essential (primary) hypertension I10 ; Type 2 diabetes mellitus without complications E11.9 ; Disorder of lipoprotein metabolism, unspecified E78.9 ; Gastro-esophageal reflux disease without esophagitis K21.9 ; Atrophy of thyroid (acquired) E03.4 ; Overactive bladder N32.81 ; Abnormal mammogram R92.8 ; Atrial fibrillation, unspecified type I48.91 and Recurrent vomiting R11.10 [facility] [address] [place] [phone] 05/25/2025 MAMTA MINAYA [address] [address] 06/01/2025 MAMTA MINAYA [address] [address] 06/21/2025 MAMTA MINAYA [facility] [address] [place] [address] 06/21/2025 MAMTA REI [facility] [address] [place] [address], [place] [address] 06/27/2025 MAMTA MINAYA [facility] [address] [place] [phone] 06/27/2025 PHILIP REID Dysuria R30.[address] [address] 06/29/2025 MAMTA REI [facility] [address] [place] [phone] 07/31/2025 MAMTA MINAYA [address] [address] 08/14/2025 MAMTA MINAYA ASSESSMENTS Encounter Date Diagnosis Assessment Notes Treatment [...] or worsening symptoms. Otherwise follow-up as scheduled. 02/16/2025 Abnormal mammogram (ICD-10 - R92.8) 05/17/2025 Type 2 diabetes mellitus without complications (ICD-10 - E11.9) Stable continue present dose of metformin. Check A1c goal less than 7.5. Ophthalmology q. year. Other meds as ordered 05/17/2025 Essential (primary) hypertension (ICD-10 - I10) Blood pressure stable well-controlled no change in therapy avoid NSAIDs IVP dyes etc. 11/18/2024 Disorder of lipoprotein metabolism, unspecified (ICD-10 - E78.9) LDL at goal 05/16, <100; continue statin 11/18/2024 Essential (primary) hypertension (ICD-10 - I10) she hasnt checked her bp at home at all; she had an insurance doc come to the house last week and it was 160 systolic; high today as well; advised she start checking with her machine at home and send in readings in the next week for review; low salt advised 10/11/2024 Arthritis of knee (ICD-10 - M17.10) 10/10/2024 Knee pain, unspecified chronicity, unspecified laterality (ICD-10 - M25.569) 09/27/2024 Acute pain of right knee (ICD-10 - M25.561) Probably osteoarthritis with an acute flareup. Will check a CBC sed rate uric acid and Lyme titer. Check x-ray. Will give a Medrol Dosepak. Follow-up in 72 hours if no improvement 09/27/2024 Essential (primary) hypertension (ICD-10 - I10) Recheck blood pressure stable therefore no change for the time being follow-up in 4 weeks 05/17/2025 Disorder of lipoprotein metabolism, unspecified (ICD-10 - E78.9) Sinew statin therapy total cholesterol goal less than 200 LDL less than 100 follow-up in 6 months if at goal 09/27/2024 Type 2 diabetes mellitus without complications (ICD-10 - E11.9) Check blood sugar check A1c no change for now A1c goal less than 7.5 11/18/2024 Type 2 diabetes mellitus without complications (ICD-10 - E11.9) A1C at goal of 6.4; continue annual eye exams; ADA diet; continue current management 05/17/2025 Gastro-esophagea l reflux disease without esophagitis (ICD-10 - K21.9) Continue PPI. GI consult with recurrent nausea vomiting. 11/18/2024 Gastro-esophagea l reflux disease without esophagitis (ICD-10 - K21.9) Stable doing well. Continue PPI and low acid diet 11/18/2024 Overactive bladder (ICD-10 - N32.81) controlled on present managment 05/17/2025 Atrophy of thyroid (acquired) (ICD-10 - E03.4) Stable check TSH 11/18/2024 Atrophy of thyroid (acquired) (ICD-10 - E03.4) TSH normal in 05/1605/17/2025 Overactive bladder (ICD-10 - N32.81) Stable continue oxybutynin doing relatively well follow-up with urology 11/18/2024 Arthritis of knee (ICD-10 - M17.10) right knee; was seen at [facility] and was given a cortisone injection which has helped tremendously, f/u with ortho as needed 05/17/2025 Abnormal mammogram (ICD-10 - R92.8) No symptoms patient has follow-up mammogram already scheduled for 11/18/2024 Recurrent vomiting (ICD-10 - R11.10) ? etiology; she has had isolated events spaced apart (? food borne illness); will update cbc and chem panel since she had an episode a week ago; she has no other concerning symptoms; advised to call if this recurs at which time i will place a referral to GI 05/17/2025 Atrial fibrillation, unspecified type (ICD-10 - I48.91) Continue sotalol Eliquis and diltiazem. Patient in sinus rhythm at the present time, very well. Follow-up with Dr. Mcleod in 2 weeks 05/17/2025 Recurrent vomiting (ICD-10 - R11.10) Check an abdominal ultrasound check LFTs amylase lipase TTG antibody. Continue with PPI. Set up consultation with [facility] for possible endoscopy 11/18/2024 Other I am seeing the patient under the supervision of the co-signing physician. The physician was available for consultation at the time of the office visit. PLAN OF TREATMENT Pending Test Test Name Order Date US Breast Diagnostic Right, Perform US guided aspiration and/or biopsy if warranted 08/22/2024 Future Test Test Name Order Date Rapid Covid-19 01/29/2024 Next Appt Details Provider Name:MAMTA EMERY, 12/21/2025 01:00:00 PM, [address] [place] [address], [phone], Insurance Providers Payer Name Payer Address Payer Phone Subscriber Number Group Number Insured Name Patient Relationship to Insured Coverage Start Date Coverage End Date [employer] [address] C/O [facility] [place] [phone] [id number] KENTON VIEYRA Self - patient is the insured MEDICAL (GENERAL) HISTORY Medical History History ICD Code Arthritis hypercholesterolemia diabetes Gastroesophageal reflux disease (GERD) heart murmur hypertension osteoarthritis knees bilaterally rheumatic fever Overactive bladder COVID x 1 CODE STATUS DNR DNI Vaccination status COVID 3 s hots. Flu shot q. year. Tdap 2014. Pneumovax x 2. Zostavax x 1. MRA of the brain March 2023 negative Ultrasound lower extremity March 2023 Bake r's cyst right popliteal fossa Cardiac MRI December 2022 le ft ventricle normal in size EF 53% apex dyskinetic mildly aneurysmal. Small apical VSD no significant flow through the VSD RV chamber size normal Mammogram June 2022 biopsy benign no e vidence of malignancy Bone density 2017 normal Cardiac echo May 2022 no valvular disea se EF 60% Staff Editor Dr. Faisal Singh and Dr. Nabeel Mcleod Colonoscopy every 2020 Dr. Torres reche ck in 2025 Chest x-ray January 2024 negative Renal bladder ultrasound - January 2024 Dr Jose Brunner Bone density June 2023 osteopenia FRAX report major 13% hip 1.4% Mammogram June 2023 negative Mammogram February 2025 grouped calcifications stable since 2021 recheck in 6 months Cardiac echo April 2025 EF 55 to 60%. LVH no significant valvular abnormalities New onset A-fib consultation Dr. Mcleod April 2025 Surgical History Surgery Date(Month/Year) D&C Jun & Jul 2011 Hospitalization History Reason Date(Month/Year) [facility] ER - epigastric pain/burning 01/26/24
--- OUTSIDE RECORDS SUMMARY | 2025-08-29 15:08 | XMS_ITS | Clinical Summary ---
Author Organization [facility] Address [address] [place] [address] Phone Care Team Providers Care Court Specialist Name Role Phone Tommie Alford MD Primary Care Provider + [phone] Allergies Active Allergy Reactions Criticality Noted Date Comments Penicillins Rash Medium 05/04/2025 Sulfa (Sulfonamide Antibiotics) Rash Medium 04/23 Medications omeprazole (PriLOSEC) [address] capsule Take 1 capsule (20 mg total) by mouth 1 (one) time each day. Active oxyBUTYnin XL (DITROPAN-XL) 15 mg 24 hr tablet Take 1 tablet (15 mg total) by mouth 1 (one) time each day. Active metFORMIN (GLUCOPHAGE) 500 mg tablet Take 1 tablet (500 mg total) by mouth 1 (one) time each day. 04/04/2022 Active atorvastatin (LIPITOR) 80 mg tablet Take 1 tablet (80 mg total) by mouth at bedtime. Active cholecalciferol (VITAMIN D-3) 25 mcg (1,000 unit) capsule Take 2,000 mcg by mouth 1 (one) time each day. 04/04/2022 Active ferrous sulfate 325 mg (65 mg elemental iron) tablet Take 1 tablet (325 mg total) by mouth 1 (one) time each day. Active estradioL (ESTRACE) 0.01 % (0.1 mg/gram) vaginal cream Insert 0.5 g into the vagina 2 (two) times a week. 04/06/2025 Active vitamins A,C,E-zinc-jerome er (PreserVision AREDS) 2,148 mcg-113 mg-45 mg-17.4mg tablet Take 1 tablet by mouth 2 (two) times a day. Active dilTIAZem CD (CARDIZEM CD) 180 mg 24 hr capsule Take 1 capsule (180 mg total) by mouth 1 (one) time each day. 30 each 05/07/2025 Active sotaloL (BETAPACE) 80 mg tablet Take 1 tablet (80 mg total) by mouth every 12 (twelve) hours. 60 each 05/06/2025 Active apixaban (ELIQUIS) 5 mg tablet Take 1 tablet (5 mg total) by mouth 2 (two) times a day. 60 each 05/06/2025 Active Active Problems Problem Noted Date Diagnosed Date Primary hypertension 06/02/2025 Assessment & Plan (06/02/2025 12:28 PM EDT): Blood pressure is well-controlled on current antihypertensive regimen; continue diltiazem as well as sotalol. The patient reports recent labs updated by her PCP office; we will attempt to obtain these for review. Other hyperlipidemia 06/02/2025 Assessment & Plan (06/02/2025 12:28 PM EDT): No recent lipid panel on file but she states that her PCP typically monitors this; given her history of diabetes, recommend LDL goal of less than 70. We will attempt to obtain the patient's most recent labs from her PCP office that she states were completed on or around 05/19/2025. In the interim, continue atorvastatin 80 mg daily. Snoring 06/02/2025 Assessment & Plan (06/02/2025 12:28 PM EDT): We discussed the potential for untreated sleep apnea given her history of snoring and new onset atrial fibrillation; she is amenable to a referral to sleep medicine for further evaluation and treatment. We discussed the potential long-term negative implications of untreated sleep apnea as a pertains to her cardiovascular health and she verbalized understanding. Orders: Ambulatory referral to Sleep Medicine; Future Secondary hypercoagulable state (CMS/[facility] V24) Assessment & Plan (06/02/2025 12:28 PM EDT): Chest pressure 06/02/2025 Assessment & Plan (06/02/2025 12:28 PM EDT): The patient had a single episode of chest pressure that accompanied her recent episode of atrial fibrillation with RVR; she has not had any recurrent symptoms to suggest underlying ischemia and remains quite active on a regular basis. As such, no further ischemic workup appears to be necessary at this time. We discussed cardiac risk reduction through lifestyle modifications with healthy diet, and weight management. The patient was advised to seek emergent medical attention by calling 911 if they were to develop severe dyspnea, chest pain that did not resolve with rest, or if they were to faint. Type 2 diabetes mellitus ([facility] V24, [facility] V 28) 06/02/2025 VSD (ventricular septal defect) 06/02/2025 Assessment & Plan (06/02/2025 12:28 PM EDT): Appeared stable according to most recent echocardiogram completed while inpatient on 05/05/2025; we will continue to monitor this on serial echocardiograms. Class 2 severe obesity due t o excess calories with serious comorbidity and body mass index (BMI) of 36.0 to 36.9 in adult 06/02/2025 Assessment & Plan (06/02/2025 12:28 PM EDT): The patient reports that over the last 9 to 10 years she has lost just over 40 pounds; she was encouraged to continue with her current efforts towards weight loss. Approaches towards weight loss are discussed, including burning more calories than one takes in by portion control and regular exercise with an emphasis on duration rather than intensity. Atrial fibrillation with rap id ventricular response ([facility] V24, [facility] V28) 05/04/2025 Assessment & Plan (06/02/2025 12:28 PM EDT): The patient was admitted to [facility] on 05/04/2025 after activating EMS for reports of chest and arm pressure and was found to be in new onset atrial fibrillation with RVR. Rate has been well-controlled with diltiazem and she was started on sotalol for rhythm control; she appears to be tolerating both medications well, ECG shows a normal QTc, and we will not make any changes today. She has not noted any recurrent symptoms to suspect a recurrence of her atrial fibrillation; and the months leading up to this episode, she does recall having some palpitations and feeling more fatigued. She was advised to remain cognizant of any recurrence of the symptoms as they may represent a recurrence of her atrial fibrillation. She is palpating her pulse to ensure that it remains regular and is watching her heart rate at home; we did discuss obtaining a [employer] mobile which may also help to keep track of any recurrence of atrial fibrillation. Signs or symptoms for which she should return to care or seek emergent medical attention were reviewed and she verbalizes understanding. We discussed the risks and benefits of continuing with anticoagulation for cardioembolic prophylaxis given a [id number] score of 4; she wishes to continue with the current plan. She is on the appropriate dose of apixaban 5 mg twice daily for her age of less than 80 years, weight of greater than 60 kg, and creatinine of less than 1.5. She is aware to seek urgent medical attention for any uncontrolled bleeding, signs or symptoms of GI or other internal bleeding, or for any head injury. Orders: ECG 12 lead Ambulatory referral to Sleep Medicine; Future Encounters Date Type Department Care Team Description 08/12/2025 Telephone [facility] Cardiology [facility] [address] [facility] [address] [place] [phone] Lili Henriquez NP 06/02/2025 9:40 AM EDT Office Visit [facility] Cardiology [facility] [address] [place] [address] Lili Henriquez NP Paroxysmal atrial fibrillation (CMS/HCC V24, CMS/HCC V28) (Primary Dx); Secondary hypercoagulable state (CMS/HCC V24); Snoring; Chest pressure; Other hyperlipidemia; Primary hypertension; VSD (ventricular septal defect); Class 2 severe obesity due to excess calories with serious comorbidity and body mass index (BMI) of 36.0 to 36.9 in adult ([facility] V24, [facility] V28); Hospital discharge follow-up from Last 3 Months Medical History Medical History Date Comments Hypertension HLD (hyperlipidemia) Diabetes mellitus ([facility] V24, [facility] V28) Arthritis Anxiety GERD (gastroesophageal reflux disease) Macular degeneration Hypokalemia Urinary incontinence Family History Medical History Relation Name Comments pacemaker Mother Relation Name Status Comments Mother Social History Tobacco Use Types Packs/Day Years Used Date Smoking Tobacco: Never Smokeless Tobacco: Never Alcohol Use Standard Drinks/Week Comments Yes 0 (1 standard drink = 0.6 oz pur e alcohol) wine occasionally Housing Instability Answer Date Recorde d Are you worried that in the next 2 months you may not have stable housing? No 05/04/2025 Food Access & Nutrition Answer Date Rec orded Do you have access to a vari ety of food including fruits and vegetables? Yes 05/04/2025 Access to Healthcare Answer Date Record ed Within the last 3 months, ho w many times did you visit the emergency department for your medical care? 0 05/04/2025 Health Literacy Answer Date Recorded How often do you need to hav e someone help you when you read instructions, pamphlets, or other written material from your doctor or pharmacy? Never 05/04/2025 Caregiver: How often do you need to have someone help you when you read instructions, pamphlets, or other written material from your doctor or pharmacy? Not on file 05/04/2025 Financial Risk Answer Date Recorded How hard is it for you to pa y for the very basics like food, housing, medical care, and air conditioning / heating? Not very hard 05/04/2025 Transportation Answer Date Recorded Has the lack of transportati on kept you from meetings, work, or from getting things needed for daily living? No Has the lack of transportati on kept you from medical appointments or from getting medications? No 05/04/2025 Social Isolation Answer Date Recorded How often do you feel lonely or isolated from th ose around you? Never 05/04/2025 Food Risk Answer Date Recorded Within the past 12 months we worried whether our food would run out before we got money to buy more. Never true 05/04/2025 Within the past 12 months th e food we bought just didn't last and we didn't have money to get more. Never true 05/04/2025 Dependent Care Answer Date Recorded Do you need help finding or paying for care for your loved ones. For example, director child abuse therapy or elderly care for an older adult? No 05/04/2025 Education Answer Date Recorded Do you think completing more education or training, like finishing a GED, going to college, or learning a trade, would be helpful for you? No 05/04/2025 Employment and Income Answer Date Recor ded During the last four weeks, have you been actively looking for work? No 05/04/2025 Living Situation Answer Date Recorded What is your living situation? Unrecognized valu e 05/04/2025 Interpersonal Safety Answer Date Record ed Physical Abuse Unrecognized value 05/04/2025 Verbal Abuse Unrecognized value 05/04/2025 Comments Unknown Sex and Gender Information Value Date Recorded Sex Assigned at Not on file Legal Sex Female 10:10 PM EST Gender Identity Not on file Sexual Orientation Not on file Obstetrics History Last Filed Vital Signs Vital Sign Reading Time Taken Comments Blood Pressure 118/62 06/02/2025 9:33 AM EDT Pulse 61 06/02/2025 9:33 AM EDT Temperature 37.1 C (98.8 F) 05/06/2025 12:12 PM EDT Respiratory Rate 16 05/06/2025 12:12 PM EDT Oxygen Saturation 98% 06/02/2025 9:33 AM EDT Inhaled Oxygen Concentration - - Weight 81.4 kg (179 lb 6.4 oz) 06/02/2025 9:33 A M EDT Height 149.9 cm (4' 11 ) 06/02/2025 9:33 AM EDT Body Mass Index 36.23 06/02/2025 9:33 AM EDT Plan of Treatment Upcoming Encounters Date Type Department Care Team (Late st Contact Info) Description 12/04/2025 8:40 AM EST Office Visit [facility] [address] [facility] [address] [place] [address] Lili Henriquez NP [address] [facility] [address] [place], [place] [id number] Health Maintenance Due Date Last Done Comments Colorectal Cancer Screening: Colonoscopy 1950 Diabetes: Annual Foot Exam 1960 Diabetes: Annual Retina Eye Exam 1960 RSV Immunization Adult Patients (1 - Risk 60-74 years 1-dose series) 2010 Pneumococcal Vaccine: 50+ Years (2 of 2 - PCV) 07/05/2016 07/05/2015 Cholesterol Screening (Lipid Panel) 10/25/2022 Hepatitis C Screening 10/25/2022 Medicare Annual Wellness Visit 10/25/2022 Zoster Vaccines (2 of 2) 12/22/2022 10/27/2022 Depression Screening 11/23/2024 Diabetes: Annual Urine Albumin-Creatinine Ratio (uACR) 05/10/2025 Diabetes: Blood Sugar Control Test (HGBA1C) 05/10/2025 Breast Cancer Screening 07/08/2025 07/08/20, 06/29/2022, 06/19/2021, Additional history exists COVID-19 Vaccine ( season) 2025 08/15/2024, 09/18/2023, 08/26/2022, Additional history exists Influenza Vaccine (#1) 2025 , 09/18/2023, 08/29/2021, Additional history exists Social Influencers of Health Screening 05/04/2026 05/04/2025 Falls Risk Assessment 05/05/2026 05/05/2025 Diabetes: Annual GFR (Glomerular Filtration Rate) 05/06/2026 05/06/2025, 05/05/2025, 05/04/2025, Additional history exists Hypertension/CHF/CAD Annual BMP Blood Test 05/06/2026 05/06/2025, 05/05/2025, 05/04/2025, Additional history exists DTaP,Tdap,and Td Vaccines (3 - Td or Tdap) 07/27/2028 07/27/2018, 07/05/2015 Osteoporosis Screening (Bone Density Screening) 07/08/2033 07/08/2023, [...] Procedure Name Priority Date/Time Associated Diagnosis Comments ECG 12-LEAD Routine 06/02/2025 12:28 PM EDT Paroxysmal atrial fibrillation (CMS/HCC V24, CMS/HCC V28) BASIC METABOLIC PANEL Routine 05/06/2025 5:27 AM EDT [facility] DEXA AXIAL SKELETON Routine 07/08/2023 11:53 AM EDT Encounter for screening for osteoporosis [facility] SCREENING DIGITAL Routine 07/08/2023 11:49 AM EDT Encounter for screening mammogram for malignant neoplasm of breast from Last 3 Months or Most Recently Relevant to Health Maintenance Results * ECG 12 lead (06/02/2025 12:28 PM EDT) Ventricular Rate ECG 61 BPM GEMUSE Atrial Rate 61 BPM GEMUSE P-R Interval 164 ms GEMUSE QRS Duration 84 ms GEMUSE Q-T Interval 438 ms GEMUSE QTc 440 ms GEMUSE P Wave [place] -3 degrees GEMUSE R [place] 4 degrees GEMUSE T [place] 29 degrees GEMUSE ECG Interpretation Normal sinus rhythm Normal ECG When compared with ECG of 06-MAY-2025 14:06, Nonspecific T wave abnormality now evident in Lateral leads Confirmed by Lori HARRIS JAY ([id number]) on 06/14/2025 5:10:44 PM GEMUSE 06/02/2025 9:38 AM EDT 06/14/2025 5:10 PM EDT Lili Venegasa [place] [employer] ECG ORDERABLES Edite d Result - Final LIZETHUSE * (ABNORMAL) Basic metabolic panel (05/06/2025 5:27 AM EDT) Sodium 137 133 - 145 mmol/L LAB CHEMISTRY METHOD 05/06/2025 7:22 AM [facility] Potassium 3.3(L) 3.5 - 5.5 mmol/L LAB CHEMISTRY METHOD 05/06/2025 7:22 AM [facility] Chloride 103 96 - 110 mmol/L LAB CHEMISTRY METHOD 05/06/2025 7:22 AM [facility] CO2 27 21 - 32 mmol/L LAB CHEMISTRY METHOD 05/06/2025 7:22 AM [facility] Anion Gap 7 3 - 11 LAB CHEMISTRY METHOD 05/06/2025 7:22 AM [facility] Glucose 125(H) 70 - 100 mg/dL LAB CHEMISTRY METHOD 05/06/2025 7:22 AM [facility] BUN 16 5 - 25 mg/dL LAB CHEMISTRY METHOD 05/06/2025 7:22 AM [facility] Creatinine 0.80 0.50 - 1.10 mg/dL LAB CHEMISTRY METHOD 05/06/2025 7:22 AM [facility] eGFR 77 >=60 mL/min/1. 73m2 LAB CHEMISTRY METHOD 05/06/2025 7:22 AM [facility] Comment:Calculation based on the Chronic Kidney Disease Epidemiology Collaboration (CKD-EPI) equation refit without adjustment for race. BUN/Creatinine Ratio 20.0 LAB CHEMISTRY METHOD 05/06/2025 7:22 AM [facility] Calcium 8.9 8.5 - 10.5 mg/dL LAB CHEMISTRY METHOD 05/06/2025 7:22 AM EDT [facility] Blood Venous blood specimen / Unknown Venipuncture / Unknown 05/06/2025 5:27 AM EDT 05/06/2025 6:25 AM EDT Marcus [place] MD LAB BLOOD ORDERABLE S Final Result [facility] [address] [place] [address], * [facility] DEXA AXIAL SKELETON (07/08/2023 11:53 AM EDT) Anatomical Region Laterality Modality Mammography 07/08/2023 11:0 8 AM EDT Narrative 07/08/2023 11:53 AM EDT [facility] Diagnostic Imaging Department [address] [place] [address] Patient: JARRELLSUZIE D.O.B./Age/Sex: 1950 - 72 - F Unit#: [id number] [facility] Mnemonic/Ordering Site: [facility] Ordering Physician: FIDE NAPIER MD [facility] Dexa Axial Skeleton - 07/08/23 - 1150 Report Status:Signed HISTORY: The patient is a 72-year-old postmenopausal female with clinical concern for metabolic bone disease. FINDINGS: Dual [...] 106% of that of age matched controls. This yields a T-score of -0.6 and a Z-score of 0.4 and there is therefore no evidence of osteoporosis or osteopenia here. However, the T-score of the left femoral neck is -1.4 which is diagnostic of osteopenia. IMPRESSION: 1. Osteopenia. There has been an increase of 14.9% in bone mineral density in the lumbar spine since the prior examination of 07/09/2018. There has been a decrease of 3.5% in bone mineral density in the right femur and a decrease of 6.6% in bone mineral density in the left femur. 2. FRAX analysis yields a 10-year probability of major osteoporotic fracture of 13.3% and a 10-year probability of hip fracture of 1.5%. Code 56330 Dictating Physician: EDI JACK MD Electronically Signed by: EDI JACK MD Dic Date/Time: 07/08/23 1152 Sign date/Time: 07/08/23 1153 Procedure Note Edi Jack MD - 12/29/2023 [facility] Diagnostic Imaging Department [address] [place] [id number] Patient: JARRELLSUZIE/Age/Sex: 1950 - 72- F Unit#: [id number] [facility] Ordering Physician: FIDE NAPIER MD [place] Dexa Axial Skeleton - 07/08/23 - 115 Report Status:Signed HISTORY: The patient is a [...] density of the femurs bilaterally is 0.932 gm/sq8dpsij is 93% of that of young normals [...] probability of hip fracture of 1.5%. Code 22645 Dictating Physician: EDI JACK MD Electronically Signed by: EDI JACK MD Dic Date/Time: 07/08/23 1152 Sign date/Time: 07/08/23 115 us Fide Napier MD IMG BI PROCEDURES Final Result * [facility] SCREENING DIGITAL (07/08/2023 11:49 AM EDT) Anatomical Region Laterality Modality Mammography 07/08/2023 11:0 6 AM EDT Narrative 07/08/2023 11:49 AM EDT [facility] Diagnostic Imaging Department [address] [place] [address] Patient: JARRELLSUZIE./Age/Sex: 1950 - 72 - F Unit#: [id number] [facility] CLI Mnemonic/Ordering Site: [facility] Ordering Physician: FIDE NAPIER MD [facility] Screening Digital - 07/08/23 - 1124 Report Status:Signed EXAM: [facility] Screening Digital EXAM DATE AND TIME: 07/08/2023 11:25 AM HISTORY: Routine screening mammogram COMPARISON: 07/10/2022, 07/01/2022, 06/28/2022 TECHNIQUE: Bilateral digital breast tomosynthesis was performed in the CC and MLO projections. Computer aided detection with eWise 3D 3.1 was employed. TISSUE DENSITY: b. There are scattered areas of fibroglandular density. FINDINGS: No suspicious masses, grouped microcalcifications, or areas of architectural distortion are seen. The skin and vascularity are unremarkable. A biopsy clip on the right is noted. Benign calcifications on the right as well as left noted. Stable nodular density on the right laterally identified. IMPRESSION: Stable mammographic appearance of the breasts. No evidence of malignancy is seen. A negative mammogram in the presence of a clinically suspicious palpable abnormality does not preclude the possibility of malignancy or alter the indications for biopsy. BI-RADS: Category 2: Benign RECOMMENDATION(S): 1: Routine screening mammogram BILATERAL in 1 year. Dictating Physician: ABBEY STACY MD Electronically Signed by: ABBEY STACY MD Dic Date/Time: 07/08/23 1147 Sign date/Time: 07/08/23 1149 Procedure Note Abbey Stacy MD - 12/29/2023 [facility] Diagnostic Imaging Department [address] [place] [address] Patient: JARRELLSUZIE /Age/Sex: 1950 - 72- F Unit#: [id number] [facility] Mnemonic/Ordering Site: [facility] Ordering Physician: FIDE NAPIER MD [facility] Screening Digital - 07/08/23 - 1124 Report Status:Signed EXAM: [facility] Screening Digital EXAM DATE AND TIME: 07/08/2023 11:25 AM HISTORY: Routine screening mammogram COMPARISON: 07/10/2022, 07/01/2022, 06/28/2022 TECHNIQUE: Bilateral digital breast tomosynthesis was performed in the CCand MLO projections. Computer aided detection with eWise 3D 3.1was employed. TISSUE DENSITY: b. There [...] mammogram BILATERAL in 1 year. Dictating Physician: ABBEY STACY MD Electronically Signed by: ABBEY STACY MD Dic Date/Time: 07/08/23 1147 Sign date/Time: 07/08/23 1149 Fide Napier MD IMG BI PROCEDURES Final Result from Last 3 Months or Most Recently Relevant to Health Maintenance Insurance [facility] MEDICARE Member Subscriber Plan / Payer (Ef fective 2024-Present) Name:Suzie Lamas Relation to Subscriber:Self Name:Suzie Lamas Payer ID:[id number] Group ID:[id number] Type:Not on file Address: [place] [address] [address] [id number] Advance Directives * Full Code - Default (Latest Code Status on File) Date Activated Date Inactivated Comments 05/04/2025 6:27 AM 05/06/2025 4:49 PM This is orde r is used when code status has not been discussed with the patient, or code status is otherwise unknown/unconfirmed To update the patient's code status, place a code status order. Do not modify or discontinue any currently active code status orders. Care Teams Court Specialist Relationship Specialty Start Date End Date Tommie Alford MD [address] [place] [id number] [facility] - General 07/11/09
== END 2025-08-29 12:09 | disposition home or self-care (01) ==
LOC: HO.MAMMO 12:08
PROVIDERS: PCP Internal Medicine; Visit Provider Internal Medicine
DX: R92.8 Other abnormal and inconclusive findings on diagnostic imaging of breast (principal)
CPT/HCPCS: 77062; 77066

== ENCOUNTER → 2025-08-29 12:30 | Outpatient (BNV) | payer OTHER, SELFPAY | PROVIDERS: PCP Internal Medicine; Visit Provider Internal Medicine | DX: R92.1 Mammographic calcification found on diagnostic imaging of breast (principal) | CPT/HCPCS: 77066; G0279 ==